=== PATIENT | male | born 1945 | race American Indian/Alaskan Native ===

== ENCOUNTER 2018-01-03 13:37 | Day surgery (SDC) | payer MEDICARE ==
[2017-12-19 16:05] VITALS: BMI 30.8
[2018-01-03 14:37] LABS: BASO # 0.09 K/mm3 (0.0-2.0); BASO % 1.1 % (0.0-3.0); EOS # 0.6 (0.0-0.7); EOS % 6.9 % (1.5-5.0); GRAN # 4.41 (1.4-6.5); GRAN % 53.4 % (50.0-68.0); HEMOGLOBIN 9.4 g/dL (14.0-18.0); LYMPH # 2.6 (1.2-3.4); LYMPH % 31.8 % (22.0-35.0); MEAN CELL VOLUME 61.2 fl (80.0-105.0); MEAN CORPUSCULAR HEMOGLOBIN 19.7 pg (25.0-35.0); MEAN CORPUSCULAR HGB CONC 32.2 g/dl (31.0-37.0); MEAN PLATELET VOLUME 9.2 fl (7.0-11.0); MONO # 0.6 (0.1-0.6); MONO % 6.8 % (1.0-6.0); PLATELET COUNT 267 10^3/uL (120.0-450.0); RBC 4.77 10^6/uL (3.5-6.1); RED CELL DISTRIBUTION WIDTH 17.7 % (11.5-14.5); WHITE BLOOD COUNT 8.3 10^3/uL (4.5-11.0)
[2018-01-03 14:43] LABS: INR 1.49; PARTIAL THROMBOPLASTIN TIME 32.6 Seconds (25.1-36.5); PROTHROMBIN TIME 17.1 SECONDS (9.4-12.5)
[2018-01-03 14:48] LABS: BLOOD UREA NITROGEN 12 mg/dL (7-21); CALCIUM 9.8 mg/dL (8.4-10.5); GFR NON-AFRICAN AMERICAN > 60
[2018-01-03] MEDS ORDERED: Midazolam 2 MG/2 ML VIAL ONE (15:48)
[2018-01-03 15:58] LABS: ANISOCYTOSIS 1+; HYPOCHROMIA 1+; POIKILOCYTOSIS 1+
[2018-01-03 15:59] LABS: LARGE PLATELETS PRESENT; MICROCYTOSIS SLIGHT; OVALOCYTES SLIGHT; SCHISTOCYTES SLIGHT; TARGET CELLS SLIGHT
[2018-01-03 16:01] LABS: ACANTHROCYTES SLIGHT
[2018-01-03] MEDS ORDERED: Lidocaine 1% Inj (20ml) ONE (17:06)
[2018-01-03] MEDS ORDERED: Midazolam 2 MG/2 ML VIAL IVP ONE (17:54)
[2018-01-03] MEDS ORDERED: Oxycodone/Acetaminophen 5/325 mg Tab PO PRN (18:24)
[2018-01-03] MEDS ORDERED: Sodium Chloride 0.45% 1,000 ML IV SCH (18:30)
[2018-01-03] MEDS ORDERED: Oxycodone/Acetaminophen 5/325 mg Tab ONE (19:24)
--- NOTE | 2018-01-03 19:56 | CT ---
PROCEDURE: CT guided right apical lung biopsy. HISTORY: Head and neck carcinoma. Solitary 15 mm right apical nodule. Evaluate for lung carcinoma versus metastatic disease. PHYSICIAN(S): Saad Fisher MD. TECHNIQUE: The relative risks and indications of the procedure were explained to the patient and his son and consent obtained. The patient was placed in a left decubitus position on the CT scanner and preliminary images through the lung apices obtained. Conscious sedation and monitoring were provided throughout the procedure by a nurse. There is a 15 mm nodule at the right apex. A right posterior approach was selected and the area prepped and draped in the usual sterile fashion. 1% Xylocaine was used to anesthetize the skin and soft tissues. A 19 gauge guiding needle was advanced into the 15 mm nodule at the right lung apex. Its position was confirmed with CT. Using coaxial technique, multiple core biopsies were obtained. The postprocedure images show no evidence of pneumothorax or significant hemorrhage.. IMPRESSION: 1. CT-guided right apical lung biopsy as described above.
[2018-01-04 04:05] VITALS: O2SAT 95
--- NOTE | 2018-01-04 09:34 | RAD ---
Date of service: 01/03/2018 HISTORY: rt apical lung bx COMPARISON: No prior. FINDINGS: LUNGS: There is no evidence of post biopsy pneumothorax PLEURA: No significant pleural effusion identified, no pneumothorax apparent. CARDIOVASCULAR: Aortic calcification Moderate cardiomegaly no pulmonary vascular congestion. OSSEOUS STRUCTURES: No significant abnormalities. VISUALIZED UPPER ABDOMEN: Normal. OTHER FINDINGS: None. IMPRESSION: There is no evidence of post biopsy pneumothorax
[2018-01-04 14:07] VITALS: BP 135/74; PULSE 84; RESP 18; TEMP 97.3
== END 2018-01-04 14:49 | disposition home or self-care (01) ==
LOC: SDS 13:37 → 3RSO 20:26 → SDS 01-04 14:49
PROVIDERS: ATTEND Radiology Vascular & Interventional Radiology
DX: C34.91 Malignant neoplasm of unspecified part of right bronchus or lung (principal)
CPT/HCPCS: 32405; 36415; 71045; 77012; 80048; 85025; 85610; 85730; 88305; J2250; J2405; J3010; J7030 ×2

== ENCOUNTER 2018-02-09 10:30 | Inpatient (IN) | payer MEDICARE, OTHER ==
--- NOTE | 2018-02-09 11:09 | ED PDOC ---
Arrival/HPI - General Chief Complaint: Abnormal Skin Integrity Time Seen by Provider: 02/09/18 10:42 Historian: Patient - History of Present Illness Narrative History of Present Illness (Text): 02/09/18 11:09 72yr old male presents today sent in by dr. Grijalva for a large mass to right side of neck that has been increasing over the past 2-3 days. pt states he has a hx of lipoma but over the past 2 days. pt denies fever/chills. no headaches, no dizziness or weakness. no vomiting/diarrhea. pt states area has become large and tender and hard. no medications have been taken for pain. no trismus. no difficulty breathing or swallowing. no other complaints. Past Medical History - Provider Review Nursing Documentation Reviewed: Yes - Travel History Have you recently traveled outside [place] w/in the past 3 mons?: No - Infectious Disease Hx of Infectious Diseases: None - Cardiac Hx Cardiac Arrhythmia: Yes Hx Congestive Heart Failure: Yes Hx Peripheral Edema: Yes Other/Comment: defib - Pulmonary Hx Respiratory Disorders: No - Neurological Hx Paralysis: No - HEENT Hx HEENT Disorder: Yes Hx Cataracts: Yes - Renal Hx Renal Disorder: Yes - Endocrine/Metabolic Hx Endocrine Disorders: Yes Hx Diabetes Mellitus Type 2: Yes - Hematological/Oncological Hx Blood Transfusions: No Hx Blood Transfusion Reaction: No Hx Cancer: Yes Other/Comment: on radiation therapy - Integumentary Hx Dermatological Disorder: No - Musculoskeletal/Rheumatological Hx Musculoskeletal Disorders: Yes - Gastrointestinal Hx Gastrointestinal Disorders: No - Genitourinary/Gynecological Hx Genitourinary Disorders: No - Psychiatric Hx Emotional Abuse: No Hx Physical Abuse: No Hx Substance Use: No - Surgical History Hx Cataract Extraction: Yes - Anesthesia Hx Anesthesia Reactions: No Hx Malignant Hyperthermia: No - Suicidal Assessment Feels Threatened In Home Enviroment: No Family/Social History - Physician Review Nursing Documentation Reviewed: Yes Family/Social History: Unknown Family HX Smoking Status: Former Smoker Hx Alcohol Use: No Hx Substance Use: No Allergies/Home Meds Allergies/Adverse Reactions: Allergies No Known Allergies Allergy (Verified 12/19/17 16:05) Home Medications: Home Meds Medication Instructions Recorded Confirmed Insulin Detemir [Levemir] 20 unit SC QAM 10/21/17 02/09/18 Tamsulosin HCl [Flomax] 0.4 mg PO DAILY 10/21/17 02/09/18 amLODIPine [Norvasc] 10 mg PO DAILY 10/21/17 02/09/18 Atorvastatin [Lipitor] 80 mg PO DAILY 12/19/17 02/09/18 Insulin Detemir [Levemir] 15 unit SQ QPM 12/19/17 02/09/18 Metoprolol Tartrate [Lopressor] 25 mg PO BID 12/19/17 02/09/18 Valsartan [Diovan] 80 mg PO DAILY 12/19/17 02/09/18 Warfarin [Coumadin] 5 mg PO DAILY 12/19/17 02/09/18 Ferrous Sulfate [Feosol] 325 mg PO DAILY 01/03/18 02/09/18 Review of Systems - Review of Systems Constitutional: absent: Fatigue, Fevers Respiratory: absent: SOB, Cough Cardiovascular: absent: Chest Pain, Palpitations Gastrointestinal: absent: Abdominal Pain, Nausea, Vomiting Skin: Abscess Neurological: absent: Headache, Dizziness Psychiatric: absent: Anxiety, Depression Physical Exam Vital Signs Reviewed: Yes Vital Signs Temp Pulse Resp BP Pulse Ox 02/09/18 10:31 98 F 109 H 18 117/68 97 Temperature: Afebrile Blood Pressure: Normal Pulse: Tachycardic Respiratory Rate: Normal Appearance: Positive for: Well-Appearing, Non-Toxic, Comfortable Pain Distress: None Mental Status: Positive for: Alert and Oriented X 3 - Systems Exam Head: Present: Tenderness, Swelling, Other (right sided of the neck inferior to the ear lobe there is a large golf ball sized mass with tenderness, erythema, warmth, induration but no fluctuance. ) Mouth: Present: Moist Mucous Membranes, Normal Lips, Normal Tounge. No: Trismus Pharnyx: Present: Normal Respiratory/Chest: Present: Clear to Auscultation Cardiovascular: Present: Tachycardic. No: Murmurs Neurological: Present: GCS=15 Skin: Present: Warm, Dry Psychiatric: Present: Alert, Oriented x 3 Medical Decision Making ED Course and Treatment: 02/09/18 11:15 72yr old male with right sided neck mass cbc: wnl cmp: bun;33/ cr: 1.3 glucose; [address] maxillofacial with IV contrast; FINDINGS: NASOPHARYNX: Unremarkable. SUPRAHYOID NECK: Unremarkable oropharynx, oral cavity, parapharyngeal space and retropharyngeal space. INFRAHYOID NECK: Unremarkable larynx, hypopharynx, and supraglottic space. Vocal cords intact. MASS: There is a large 6.5 cm mass on the left side of the neck. This surrounds and o bliterates the left sternocleidomastoid muscle and left jugular vein. This was previously evaluated with PET-CT and is consistent with the known history of squamous cell head and neck cancer. On the right side there is a 3 x 3.8 cm fluid collection containing pockets of air. Calcifications are also seen within the fluid matrix. The fluid measures 13 Hounsfield units in density. This probably represents an abscess or necrotic lymph node. This was not described on the prior PET-CT. GLANDS: Parotid and submandibular glands unremarkable. Normal size thyroid gland, without nodule. LYMPH NODES: Mild to moderately enlarged cervical lymph nodes are seen on the right and in the supraclavicular area CERVICAL SPINE: No fracture or focal lesion. VASCULAR STRUCTURES: Unremarkable. OTHER FINDINGS: None. IMPRESSION: There is a large 6.5 cm mass on the left side of the neck. This surrounds and obliterates the left sternocleidomastoid muscle and left jugular vein. This was previously evaluated with PET-CT and is consistent with the known history of squamous cell head and neck cancer. On the right side there is a 3 x 3.8 cm fluid collection containing pockets of air. Calcifications are also seen within the fluid matrix. The fluid measures 13 Hounsfield units in density. This probably represents an abscess or necrotic lymph node. This was not described on the prior PET-CT. 02/09/18 13:[address] torrez, accepts observational status admission to med/surg with surgical consult. pt started on vancomycin and zosyn. impression: neck pain, abscess admit med/surg observational status. 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 02/09/18 15:04 - RAD Interpretation Radiology Orders: 02/09/18 10:54 MAXILLOFACIAL W/CONTRAST [CT] Stat - Medication Orders Current Medication Orders: Discontinued Medications Acetaminophen (Tylenol 325mg Tab) 650 mg PO STAT STA Stop: 02/09/18 10:56 Disposition/Present on Arrival - Present on Arrival Any Indicators Present on Arrival: No History of DVT/PE: No History of Uncontrolled Diabetes: No Urinary Catheter: No History of Decub. Ulcer: No History Surgical Site Infection Following: None - Disposition Have Diagnosis and Disposition been Completed?: Yes Diagnosis: Neck mass, Abscess Disposition: HOSPITALIZED Disposition Time: 13:40 Patient Plan: Observation Patient Problems: Current Active Problems Problem Status Onset Abscess Acute Neck mass Acute Condition: FAIR
[2018-02-09 11:57] LABS: BASO # 0.04 K/mm3 (0.0-2.0); BASO % 0.4 % (0.0-3.0); EOS # 0.5 (0.0-0.7); EOS % 4.5 % (1.5-5.0); GRAN # 8.04 (1.4-6.5); GRAN % 77.3 % (50.0-68.0); LYMPH # 1.2 (1.2-3.4); LYMPH % 11.5 % (22.0-35.0); MEAN CELL VOLUME 61.4 fl (80.0-105.0); MEAN CORPUSCULAR HEMOGLOBIN 19.4 pg (25.0-35.0); MEAN CORPUSCULAR HGB CONC 31.5 g/dl (31.0-37.0); MONO # 0.7 (0.1-0.6); MONO % 6.3 % (1.0-6.0); PLATELET COUNT 217 10^3/uL (120.0-450.0); RBC 5.16 10^6/uL (3.5-6.1); RED CELL DISTRIBUTION WIDTH 19.6 % (11.5-14.5); WHITE BLOOD COUNT 10.4 10^3/uL (4.5-11.0)
[2018-02-09 12:02] LABS: INR 1.26; PARTIAL THROMBOPLASTIN TIME 28.1 Seconds (25.1-36.5); PROTHROMBIN TIME 14.6 SECONDS (9.4-12.5)
[2018-02-09 12:28] LABS: ALB/GLOB RATIO 0.9 (1.1-1.8); ALBUMIN 3.8 g/dL (3.0-4.8); ALT/SGPT 21 U/L (7-56); AST/SGOT 19 U/L (17-59); BLOOD UREA NITROGEN 33 mg/dL (7-21); CALCIUM 8.8 mg/dL (8.4-10.5); GFR NON-AFRICAN AMERICAN 54
[2018-02-09] MEDS ORDERED: Iohexol 350 MG/100 ML VIAL ONE (12:35)
[2018-02-09 13:03] VITALS: BMI 25.2
--- NOTE | 2018-02-09 13:46 | CT ---
Date of service: 02/09/2018 PROCEDURE: CT NECK WITH CONTRAST HISTORY: right sided mass just adjacent to ear COMPARISON: PET-CT 11/30/2017 TECHNIQUE: CT of the neck with intravenous contrast. Coronal and sagittal reformats generated. Intravenous contrast dose: 100 cc of Omni 350 Radiation dose: Total exam DLP = 927.86 mGy-cm. This CT exam was performed using one or more of the following dose reduction techniques: Automated exposure control, adjustment of the mA and/or kV according to patient size, and/or use of iterative reconstruction technique. FINDINGS: NASOPHARYNX: Unremarkable. SUPRAHYOID NECK: Unremarkable oropharynx, oral cavity, parapharyngeal space and retropharyngeal space. INFRAHYOID NECK: Unremarkable larynx, hypopharynx, and supraglottic space. Vocal cords intact. MASS: There is a large 6.5 cm mass on the left side of the neck. This surrounds and obliterates the left sternocleidomastoid muscle and left jugular vein. This was previously evaluated with PET-CT and is consistent with the known history of squamous cell head and neck cancer. On the right side there is a 3 x 3.8 cm fluid collection containing pockets of air. Calcifications are also seen within the fluid matrix. The fluid measures 13 Hounsfield units in density. This probably represents an abscess or necrotic lymph node. This was not described on the prior PET-CT. GLANDS: Parotid and submandibular glands unremarkable. Normal size thyroid gland, without nodule. LYMPH NODES: Mild to moderately enlarged cervical lymph nodes are seen on the right and in the supraclavicular area CERVICAL SPINE: No fracture or focal lesion. VASCULAR STRUCTURES: Unremarkable. OTHER FINDINGS: None. IMPRESSION: There is a large 6.5 cm mass on the left side of the neck. This surrounds and obliterates the left sternocleidomastoid muscle and left jugular vein. This was previously evaluated with PET-CT and is consistent with the known history of squamous cell head and neck cancer. On the right side there is a 3 x 3.8 cm fluid collection containing pockets of air. Calcifications are also seen within the fluid matrix. The fluid measures 13 Hounsfield units in density. This probably represents an abscess or necrotic lymph node. This was not described on the prior PET-CT.
[2018-02-09] MEDS ORDERED: Vancomycin 1gm in NS 250ml 1 GM/250 ML BAG IVPB STA (13:47)
[2018-02-09] MEDS ORDERED: Piperacillin/Tazobact 3.375 gm 100 ML IVPB STA (13:47)
--- NOTE | 2018-02-09 14:49 | CP.PCM.HP ---
<Abraham Urrutia - Last Filed: 02/09/18 15:24> History of Present Illness - History of Present Illness History of Present Illness: Abraham Urrutia PGY1, History and Physical for Dr Deanne Villarreal Pt is a 72yo male with a PMH of CHF atrial fibrillation, diabetes type II, HTN, left neck mass Squamous cell carcinoma, non small cell lung cancer of the lung who presents to the ED after being refereed by his radiation oncologist, Dr Grijalva for a rapidly enlarging mass on the right side of his cheek below his ear lobe. Pt states that he has had a bump in this location for "years". Pt was told at one time that this is "some type of gland". Pt denies drainage from the lump. Pt states he has a cancerous mass on the left side of his cheek for which he is receiving treatment for from Dr Grijalva and Dr Lucio. Pt has been receiving daily radiation treatments. Pt also states he has been having trouble swallowing. Pt denies trouble breathing, fevers, chills, chest pain, SOB, or abdominal pain. A 12 point ROS was obtained and added to the HPI where appropriate. Past Medical History: CHF atrial fibrillation, diabetes type II, HTN, left neck mass Squamous cell carcinoma, non small cell lung cancer of the lung Past Surgical History: I+D of left groin abscess, biopsy of mass on left side of neck/face Family History: mother asthma, father "heart attack Social History: Tobacco 10 pack years history, denies alcohol, denies drugs Allergies: denies Home Meds: lasix, lopressor, valsartan, coumadin, amlodipine, lipitor, flomax, lispro, levemir Present on Admission - Present on Admission Any Indicators Present on Admission: No Review of Systems - Review of Systems Review of Systems: a 12 point ROS was obtained and added to the HPI where appropriate Past Patient History - Infectious Disease Hx of Infectious Diseases: None - Past Medical History & Family History Past Medical History?: Yes - Past Social History Smoking Status: Former Smoker - CARDIAC Hx Cardia Arrhythmia: Yes Hx Congestive Heart Failure: Yes Hx Peripheral Edema: Yes Other/Comment: defib - PULMONARY Hx Respiratory Disorders: No - NEUROLOGICAL Hx Paralysis: No - HEENT Hx HEENT Problems: Yes Hx Cataracts: Yes - RENAL Hx Chronic Kidney Disease: Yes - ENDOCRINE/METABOLIC Hx Endocrine Disorders: Yes Hx Diabetes Mellitus Type 2: Yes - HEMATOLOGICAL/ONCOLOGICAL Hx Blood Transfusions: No Hx Blood Transfusion Reaction: No Hx Cancer: Yes Other/Comment: on radiation therapy - INTEGUMENTARY Hx Dermatological Problems: No - MUSCULOSKELETAL/RHEUMATOLOGICAL Hx Musculoskeletal Disorders: Yes - GASTROINTESTINAL Hx Gastrointestinal Disorders: No - GENITOURINARY/GYNECOLOGICAL Hx Genitourinary Disorders: No - PSYCHIATRIC Hx Emotional Abuse: No Hx Physical Abuse: No Hx Substance Use: No - SURGICAL HISTORY Hx Cataract Extraction: Yes - ANESTHESIA Hx Anesthesia Reactions: No Hx Malignant Hyperthermia: No Meds Allergies/Adverse Reactions: Allergies Allergy/AdvReac Type Severity Reaction Status Date / Time No Known Allergies Allergy Verified 12/19/17 16:05 Physical Exam - Head Exam Additional comments: pt has a mass on the left and right side of his face/neck - Eye Exam Eye Exam: EOMI - ENT Exam ENT Exam: Mucous Membranes Moist - Respiratory Exam Respiratory Exam: Clear to Auscultation Bilateral. absent: Accessory Muscle Use, Respiratory Distress - Cardiovascular Exam Cardiovascular Exam: +S1, +S2. absent: Diastolic murmur, Systolic Murmur - GI/Abdominal Exam GI & Abdominal Exam: Normal Bowel Sounds, Soft. absent: Tenderness - Extremities Exam Extremities exam: Positive for: full ROM, normal inspection. Negative for: calf tenderness, pedal edema - Neurological Exam Neurological exam: Alert, Oriented x3 - Psychiatric Exam Psychiatric exam: Normal Affect, Normal Mood - Skin Skin Exam: Dry, Intact, Warm Results - Vital Signs Recent Vital Signs: Last Vital Signs Temp 98 F 02/09/18 10:31 Pulse 109 H 02/09/18 10:31 Resp 18 02/09/18 10:31 BP 117/68 02/09/18 10:31 Pulse Ox 97 02/09/18 10:31 - Labs Result Diagrams: 02/09/18 11:35 02/09/18 11:35 Labs: Laboratory Results - last 24 hr 02/09/18 02/09/18 02/09/18 11:35 11:35 11:35 WBC 10.4 D RBC 5.16 Hgb 10.0 L Hct 31.7 L MCV 61.4 L MCH 19.4 L MCHC 31.5 RDW 19.6 H Plt Count 217 Gran % 77.3 H Lymph % (Auto) 11.5 L [place] % (Auto) 6.3 H Eos % (Auto) 4.5 Baso % (Auto) 0.4 Gran # 8.04 H Lymph # (Auto) 1.2 [place] # (Auto) 0.7 H Eos # (Auto) 0.5 Baso # (Auto) 0.04 PT 14.6 H INR 1.26 APTT 28.1 Sodium 138 Potassium 3.9 Chloride 95 L Carbon Dioxide 33 Anion Gap 14 BUN 33 H Creatinine 1.3 Est GFR ( Amer) > 60 Est GFR (Non-Af Amer) 54 Random Glucose 265 H Calcium 8.8 Total Bilirubin 1.1 AST 19 ALT 21 Alkaline Phosphatase 131 H Total Protein 8.2 Albumin 3.8 Globulin 4.4 Albumin/Globulin Ratio 0.9 L Assessment & Plan - Assessment and Plan (Free Text) Assessment: Pt is a 72yo male with a PMH of CHF atrial fibrillation, diabetes type II, HTN, left neck mass Squamous cell carcinoma, non small cell lung cancer of the lung who presents to the ED after being refereed by his radiation oncologist, Dr Grijalva for a rapidly enlarging mass on the right side of his cheek below his ear lobe. Plan: Abscess vs Necrotic Lymph node, Right side of head/neck - hx of left neck mass Squamous cell carcinoma - Swallow eval - Surgery consult - Radiation onc, Dr Grijlava - Heme/ onc Dr Lucio - ID non small cell lung cancer of the lung - continue to follow with Dr Valentine Shin, continue current chemotherapy and radiation CHF - lasix - lopressor - valsartan Atrial Fibrillation - coumadin Diabetes type II - levemir - lispro HTN - amlodipine 10 HLD - lipitor BPH - flomax Ppx - heparin Pt seen, examined, assessment and plan discussed with Dr Deanne Urrutia PGY1, Internal Medicine Resident - Date & Time Date: 02/09/18 Time: 15:06 <Deanne Villarreal R - Last Filed: 02/12/18 15:02> Results - Vital Signs Recent Vital Signs: Last Vital Signs Temp 97.9 F 02/12/18 06:00 Pulse 95 H 02/12/18 13:24 Resp 20 02/12/18 06:00 BP 125/75 02/12/18 13:24 Pulse Ox 97 02/12/18 06:00 - Labs Result Diagrams: 02/12/18 05:30 02/12/18 05:30 Labs: Laboratory Results - last 24 hr 02/10/18 02/11/18 02/11/18 05:44 06:00 16:20 WBC RBC Hgb Hct MCV MCH MCHC RDW Plt Count Gran % Lymph % (Auto) [place] % (Auto) Eos % (Auto) Baso % (Auto) Gran # Lymph # (Auto) [place] # (Auto) Eos # (Auto) Baso # (Auto) PT INR Sodium Potassium Chloride Carbon Dioxide Anion Gap BUN Creatinine Est GFR ( Amer) Est GFR (Non-Af Amer) POC Glucose (mg/dL) 169 H Random Glucose Hemoglobin A1c 8.3 H Calcium Total Bilirubin AST ALT Alkaline Phosphatase Total Protein Albumin Globulin Albumin/Globulin Ratio HIV 1&2 Ag/Ab, 4th Gen Nonreactive 02/11/18 02/12/18 02/12/18 21:16 05:30 05:30 WBC 4.9 D RBC 4.49 Hgb 8.5 L Hct 27.3 L MCV 60.8 L MCH 18.9 L MCHC 31.1 RDW 19.7 H Plt Count 207 Gran % 56.0 Lymph % (Auto) 20.9 L [place] % (Auto) 12.6 H Eos % (Auto) 8.9 H Baso % (Auto) 1.6 Gran # 2.76 Lymph # (Auto) 1.0 L [place] # (Auto) 0.6 Eos # (Auto) 0.4 Baso # (Auto) 0.08 PT INR Sodium 139 Potassium 3.9 Chloride 98 Carbon Dioxide 32 Anion Gap 12 BUN 28 H Creatinine 1.4 Est GFR ( Amer) > 60 Est GFR (Non-Af Amer) 50 POC Glucose (mg/dL) 174 H Random Glucose 77 Hemoglobin A1c Calcium 8.4 Total Bilirubin 0.9 AST 31 ALT 23 Alkaline Phosphatase 114 Total Protein 7.4 Albumin 3.4 Globulin 4.0 Albumin/Globulin Ratio 0.9 L HIV 1&2 Ag/Ab, 4th Gen 02/12/18 02/12/18 02/12/18 05:30 07:33 08:56 WBC RBC Hgb Hct MCV MCH MCHC RDW Plt Count Gran % Lymph % (Auto) [place] % (Auto) Eos % (Auto) Baso % (Auto) Gran # Lymph # (Auto) [place] # (Auto) Eos # (Auto) Baso # (Auto) PT 14.3 H INR 1.24 Sodium Potassium Chloride Carbon Dioxide Anion Gap BUN Creatinine Est GFR ( Amer) Est GFR (Non-Af Amer) POC Glucose (mg/dL) 65 85 Random Glucose Hemoglobin A1c Calcium Total Bilirubin AST ALT Alkaline Phosphatase Total Protein Albumin Globulin Albumin/Globulin Ratio HIV 1&2 Ag/Ab, 4th Gen 02/12/18 11:32 WBC RBC Hgb Hct MCV MCH MCHC RDW Plt Count Gran % Lymph % (Auto) [place] % (Auto) Eos % (Auto) Baso % (Auto) Gran # Lymph # (Auto) [place] # (Auto) Eos # (Auto) Baso # (Auto) PT INR Sodium Potassium Chloride Carbon Dioxide Anion Gap BUN Creatinine Est GFR ( Amer) Est GFR (Non-Af Amer) POC Glucose (mg/dL) 127 H Random Glucose Hemoglobin A1c Calcium Total Bilirubin AST ALT Alkaline Phosphatase Total Protein Albumin Globulin Albumin/Globulin Ratio HIV 1&2 Ag/Ab, 4th Gen Attending/Attestation - Attestation I have personally seen and examined this patient.: Yes I have fully participated in the care of the patient.: Yes I have reviewed all pertinent clinical information: Yes Notes (Text): Patient seen and examined by me with resident at 2 PM on 02/09/18. Case including HPI, physical exam, and assessment and plan discussed with resident. Agree with above with following additions/corrections. 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 Patient states he had a bump there for years. He noticed over the past 2 days, the bump became swollen, red, and painful. Patient states he tried hot water, salt, and alcohol for the swelli ng but did not work. Patient states he went for his radiation treatment today and his radiation oncologist sent him to the emergency room for further work up and treatment of the bump. Patient states he did not notice any drainage from the area and he did not try anything for the pain. Patient denies any associated fevers or chills at home. Patient states that he also has a little bit of difficulty swallowing secondary to the head and neck cancer. He states that he was told he might need a PEG tube but he refuses and states hes able to eat. Patient denies any nausea, vomiting, or abdominal pain. No headaches or dizziness. No chest pain or shortness of breath. No dysuria. No diarrhea or co nstipation. Allergies: NKDA Family history: mother and had history of asthma, father of heart disease 12 point review of systems reviewed by me. See above HPI, all other systems negative. Physical exam: General: Awake and alert lying in bed in no acute distress HEENT: Normocephalic, atraumatic. Extraocular muscles intact, pupils equal and reactive, no scleral icterus. Oropharynx is pink and moist. No pharyngeal erythema or exudate appreciated. Large mass left neck. Positive swollen mass walnut sized below/behind right ear, erythematous and tender to touch. Hearing grossly decreased. Ears and nose externally unremarkable. Cardiovascular: Irregularly irregular rhythm. No murmurs, rubs, or gallops appreciated Pulmonary: Normal respiratory effort. No rhonchi, rales, or wheezing appreciated Gastrointestinal: Soft. Nondistended. Nontender. Positive bowel sounds all 4 quadrants. No guarding. Musculoskeletal: Moves all extremities. No calf tenderness. No edema appre ciated. No CVA tenderness. Central nervous system: AAOx 3, CN 2-12 grossly intact Dermatologic: Skin warm and dry. 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 1. Abscess vs necrotic lymph node. Maxillofacial CT per radiologist showed large 6.5cm mass on left side of neck, this surrounds and obliterates the left sternocleidomastoid muscle and left jugular vein, consistent with known history of squamous cell head and neck cancer; on right side, there is a 3 x 3.8 cm fluid collection containing pockets of air, calcifications are seen within the fluid matrix, fluid measures 13 [place] units, probably represents an abscess or necrotic lymph node. Surgery consulted, follow up recommendations. ID consulted, follow up recommendations. Patient afebrile. No leukocytosis. 2. Dysphagia. Per patient, he is still able to eat. Will get speech and swallow evaluation. 3. NORRIS. Patient on Lasix at home. May be secondary to dehydration. Lasix held, patient placed on low dose IV fluids. Follow up repeat labs in AM. 4. Atrial fibrillation. INR subtherapeutic. Coumadin held for now secondary to possible procedure. Continue home metoprolol. 5. Chronic systolic CHF. Compensated. Home Lasix held for now secondary to NORRIS and dehydration. Continue home metoprolol. Patient on valsartan at home, changed to cozaar here. 6. DM2. Placed on insulin sliding scale. Monitor accuchecks. 7. Essential hypertension. Continue home metoprolol and Norvasc. Patient on valsartan at home, changed to cozaar here. 8. Hyperlipidemia. Continue home Lipitor 9. BPH. Continue home Flomax 10. Anemia. Chronic. On feosol at home. 11. Head and neck cancer/nonsmall cell lung cancer. Hem/onc consulted, follow up recommendations. Patient on Cisplatin and radiation. 12. DVT prophylaxis. Coumadin held for now for possible surgical procedure. 13. Patient is a full code Case was discussed in detail with the patient and hem/onc Dr. Ricardo Lucio regarding current diagnosis and treatment plan.
[2018-02-09] MEDS: Sodium Chloride 0.9% 500 ML IV SCH (14:58)
[2018-02-09] MEDS ORDERED: Dextrose 50% SYRINGE Inj (50 ml) IV PRN (15:09)
--- NOTE | 2018-02-09 15:55 | CP.PCM.CON ---
History of Present Illness - History of Present Illness History of Present Illness: PGY-1 Catalina Romero D.O. Surgery consult note for Dr. Delcid: Patient is a 72 yo AA male with a history of L-sided neck squamous cell carcinoma, CHF, Afib, IA, HTN, and T2DM who presented to the ED today with a R- sided facial mass. Patient states that he has had a small mass by his R jaw for years. 3 days ago, the mass started to swell and increased significantly in size. He also says it is sore. He has been washing with hot salt water, which provides some relief. He has been receiving radiation for his L-sided neck CA for the past 4 weeks. Patient complained of the R-sided mass at his radiation session today, and they suggested he come to the ED. Patient denies any trouble swallowing, talking, or breathing. He denies sore throat, fevers, or chills. He has not noticed any discharge or bleeding from the mass. Of note, patient had a lung biopsy in 12/25 that revealed invasive adenocarcinoma of the lung. PMH: L-sided neck squamous cell carcinoma (week 4 of 7 of radiation), adenocarcinoma of the lung, CHF, Afib, T2DM, HTN, IA PSH: Defibrillator (5 yrs ago), ?thigh abscess (4-5 yrs ago), ?b/l armpit gland removal, CT-guided lung Bx Meds: Warfarin 5mg, Metoprolol 25mg, Lasix 40mg, Norvasc 10mg, Valsartan 80mg, Flomax 0.4mg, Lipitor 80mg, Ferrous sulfate 325mg, Tylenol PRN, Levemir 15u AM, 20u HS All: NKA FH: Father- [place] x2 Mother- asthma Brother- unknown cancer, has feeding tube SH: Lives with girlfriend Former smoker- 1/2 ppd x 7 yrs, quit 4 yrs ago Denies alcohol or illicit drug use Review of Systems - Constitutional Constitutional: absent: Chills, Fever, Headache - EENT Eyes: absent: Change in Vision Ears: absent: Decreased Hearing Nose/Mouth/Throat: Facial Pain, Neck Pain, Neck Mass. absent: Nasal Congestion, Sinus Pain, Sinus Pressure, Dental Pain, Hoarsness, Mouth Lesions, Mouth Pain, Sore Throat - Cardiovascular Cardiovascular: absent: Chest Pain, Diaphoresis, Dyspnea, Palpitations - Respiratory Respiratory: absent: Cough, Dyspnea - Gastrointestinal Gastrointestinal: absent: Abdominal Pain, Constipation, Diarrhea, Nausea, Vomiting - Genitourinary Genitourinary: absent: Dysuria, Hematuria - Musculoskeletal Musculoskeletal: absent: Muscle Weakness, Numbness, Tingling - Integumentary Integumentary: As Per HPI. absent: Lesions - Neurological Neurological: absent: Headaches, Syncope, Weakness Past Patient History - Infectious Disease Hx of Infectious Diseases: None - Past Medical History & Family History Past Medical History?: Yes Pertinent Family History: Father- [place] x2 Mother- asthma Brother- unknown cancer, has feeding tube - Past Social History Smoking Status: Former Smoker Chewing Tobacco Use: No Cigar Use: No Alcohol: None Drugs: Denies Home Situation {Lives}: Roommate (girlfriend) - CARDIAC Hx Cardia Arrhythmia: Yes Hx Congestive Heart Failure: Yes Hx Peripheral Edema: Yes Other/Comment: defib - PULMONARY Hx Respiratory Disorders: No - NEUROLOGICAL Hx Paralysis: No - HEENT Hx HEENT Problems: Yes Hx Cataracts: Yes - RENAL Hx Chronic Kidney Disease: Yes - ENDOCRINE/METABOLIC Hx Endocrine Disorders: Yes Hx Diabetes Mellitus Type 2: Yes - HEMATOLOGICAL/ONCOLOGICAL Hx Blood Transfusions: No Hx Blood Transfusion Reaction: No Hx Cancer: Yes Other/Comment: on radiation therapy - INTEGUMENTARY Hx Dermatological Problems: No - MUSCULOSKELETAL/RHEUMATOLOGICAL Hx Musculoskeletal Disorders: Yes - GASTROINTESTINAL Hx Gastrointestinal Disorders: No - GENITOURINARY/GYNECOLOGICAL Hx Genitourinary Disorders: No - PSYCHIATRIC Hx Emotional Abuse: No Hx Physical Abuse: No Hx Substance Use: No - SURGICAL HISTORY Hx Cataract Extraction: Yes - ANESTHESIA Hx Anesthesia Reactions: No Hx Malignant Hyperthermia: No Meds Allergies/Adverse Reactions: Allergies Allergy/AdvReac Type Severity Reaction Status Date / Time No Known Allergies Allergy Verified 12/19/17 16:05 - Medications Medications: Current Medications Amlodipine Besylate (Norvasc) 10 mg PO DAILY [facility] Atorvastatin Calcium (Lipitor) 80 mg PO HS [facility] Dextrose (Dextrose 50% Inj) 0 ml IV STAT PRN; Protocol PRN Reason: Hypoglycemia Protocol Furosemide (Lasix) 40 mg PO DAILY [facility] Sodium Chloride (Sodium Chloride 0.9%) 500 mls @ 60 mls/hr IV .Q8H20M [facility] Last Admin: 02/09/18 14:58 Dose: 60 mls/hr Dextrose (Dextrose 5% In Water 1000 Ml) 1,000 mls @ 0 mls/hr IV .Q0M PRN; Prot ocol PRN Reason: Hypoglycemia Protocol Insulin Detemir (Levemir) 10 unit SC BRKDIN [facility] Insulin Human Lispro (Humalog Med) 0 units SC ACHS DAVID; Protocol Losartan Potassium (Cozaar) 50 mg PO DAILY [facility] Metoprolol Tartrate (Lopressor) 50 mg PO DAILY [facility] Tamsulosin HCl (Flomax) 0.4 mg PO DAILY [facility] Physical Exam - Head Exam Additional comments: 4x4cm raised mass anterior and inferior to ear, tender to palpation - Eye Exam Eye Exam: EOMI, Normal appearance - ENT Exam ENT Exam: Mucous Membranes Moist - Neck Exam Additional comments: large L-sided neck mass, nontender, known site of CA currently undergoing radiation - Respiratory Exam Respiratory Exam: NORMAL BREATHING PATTERN. absent: Accessory Muscle Use, Respiratory Distress - Cardiovascular Exam Cardiovascular Exam: REGULAR RHYTHM - GI/Abdominal Exam GI & Abdominal Exam: Soft. absent: Distended, Tenderness - Extremities Exam Extremities exam: Positive for: normal inspection. Negative for: pedal edema - Neurological Exam Neurological exam: Alert, CN II-XII Intact, Oriented x3 - Psychiatric Exam Psychiatric exam: Normal Affect, Normal Mood - Skin Skin Exam: Dry, Normal Color, Warm Results - Vital Signs Recent Vital Signs: Last Vital Signs Temp 99.1 F 02/09/18 15:13 Pulse 99 H 02/09/18 15:10 Resp 18 02/09/18 15:10 BP 119/75 02/09/18 15:10 Pulse Ox 97 02/09/18 15:10 - Labs Result Diagrams: 02/09/18 11:35 02/09/18 11:35 Labs: Laboratory Results - last 24 hr 02/09/18 02/09/18 02/09/18 11:35 11:35 11:35 WBC 10.4 D RBC 5.16 Hgb 10.0 L Hct 31.7 L MCV 61.4 L MCH 19.4 L MCHC 31.5 RDW 19.6 H Plt Count 217 Gran % 77.3 H Lymph % (Auto) 11.5 L [place] % (Auto) 6.3 H Eos % (Auto) 4.5 Baso % (Auto) 0.4 Gran # 8.04 H Lymph # (Auto) 1.2 [place] # (Auto) 0.7 H Eos # (Auto) 0.5 Baso # (Auto) 0.04 PT 14.6 H INR 1.26 APTT 28.1 Sodium 138 Potassium 3.9 Chloride 95 L Carbon Dioxide 33 Anion Gap 14 BUN 33 H Creatinine 1.3 Est GFR ( Amer) > 60 Est GFR (Non-Af Amer) 54 Random Glucose 265 H Calcium 8.8 Total Bilirubin 1.1 AST 19 ALT 21 Alkaline Phosphatase 131 H Total Protein 8.2 Albumin 3.8 Globulin 4.4 Albumin/Globulin Ratio 0.9 L Assessment & Plan - Assessment and Plan (Free Text) Assessment: 72M with R-sided facial mass, likely infected lymph node Plan: - Maxillofacial CT: 3 x 3.8 cm fluid collection containing pockets of air and calcifications consistent with abscess or necrotic LN - Aspirate mass - f/u cytology - Analgesics PRN - Recommend ENT consult (patient has seen Dr. Malin previously) Further recs as per attending, Dr. Delcid.
[2018-02-09] MEDS ORDERED: Lidocaine 2% PF (10 ml) Amp INJ ONE (16:13)
[2018-02-09] MEDS ORDERED: Morphine 2 mg/ml ISec IVP STA (16:56)
[2018-02-09] MEDS: Insulin Lispro (humaLOG) MEDIUM Coverage SC SCH ×2 (17:52→21:57)
--- NOTE | 2018-02-09 17:56 | PCM.PROC ---
- Incision & Drainage Of Abscess Anesthesia: Lidocaine 1% Used During Procedure: Continuous Pulse Oximetry Prep Used: Betadine Procedure: Incised W/Scalpel Blade#:, Drained Pus, Irrigated Cavity W/Saline, Probed To Break Up Loculations, Packed W/Gauze, Cultures Obtained And Sent To Lab
[2018-02-09] MEDS ORDERED: Insulin Detemir 100 units/ml Vial (Levemir) SC SCH (18:00)
[2018-02-09] MEDS: Insulin Detemir 100 units/ml Vial (Levemir) SC SCH (18:40)
--- NOTE | 2018-02-09 21:26 | CP.PCM.CON ---
History of Present Illness - History of Present Illness History of Present Illness: 72 year old male with a history of locally advance head and neck cancer on definitive chemoradiation, localized NSCLC recently diagnosed and not currently on therapy, admitted with right neck swelling. The patient is s/p I+D of infect ed sebaceous cyst. He denies fevers and chills. Past medical history: Locally advanced head and neck cancer Past surgical history: I+D Family history: Denies hematologic and oncologic problems Social history: Former tobacco abuse Allergies: NKA Review of systems: All remaining review of systems including HEENT, cardiovascular, respiratory, gastrointestinal, genitourinary, musculoskeletal, dermatologic, neurologic, and psychiatric are negative unless mentioned in the HPI. Past Patient History - Infectious Disease Hx of Infectious Diseases: None - Past Medical History & Family History Past Medical History?: Yes - Past Social History Smoking Status: Former Smoker Chewing Tobacco Use: No Cigar Use: No Alcohol: None Drugs: Denies Home Situation {Lives}: Roommate (girlfriend) - CARDIAC Hx Cardia Arrhythmia: Yes Hx Congestive Heart Failure: Yes Hx Peripheral Edema: Yes Other/Comment: defib - PULMONARY Hx Respiratory Disorders: No - NEUROLOGICAL Hx Paralysis: No - HEENT Hx HEENT Problems: Yes Hx Cataracts: Yes - RENAL Hx Chronic Kidney Disease: Yes - ENDOCRINE/METABOLIC Hx Endocrine Disorders: Yes Hx Diabetes Mellitus Type 2: Yes - HEMATOLOGICAL/ONCOLOGICAL Hx Blood Transfusions: No Hx Blood Transfusion Reaction: No Hx Cancer: Yes Other/Comment: on radiation therapy - INTEGUMENTARY Hx Dermatological Problems: No - MUSCULOSKELETAL/RHEUMATOLOGICAL Hx Musculoskeletal Disorders: Yes - GASTROINTESTINAL Hx Gastrointestinal Disorders: No - GENITOURINARY/GYNECOLOGICAL Hx Genitourinary Disorders: No - PSYCHIATRIC Hx Emotional Abuse: No Hx Physical Abuse: No Hx Substance Use: No - SURGICAL HISTORY Hx Cataract Extraction: Yes - ANESTHESIA Hx Anesthesia Reactions: No Hx Malignant Hyperthermia: No Meds Allergies/Adverse Reactions: Allergies Allergy/AdvReac Type Severity Reaction Status Date / Time No Known Allergies Allergy Verified 12/19/17 16:05 - Medications Medications: Current Medications Amlodipine Besylate (Norvasc) 10 mg PO DAILY [facility] Atorvastatin Calcium (Lipitor) 80 mg PO HS [facility] Last Admin: 02/09/18 21:22 Dose: 80 mg Dextrose (Dextrose 50% Inj) 0 ml IV STAT PRN; Protocol PRN Reason: Hypoglycemia Protocol Furosemide (Lasix) 40 mg PO DAILY [facility] Sodium Chloride (Sodium Chloride 0.9%) 500 mls @ 60 mls/hr IV .Q8H20M [facility] Last Admin: 02/09/18 14:58 Dose: 60 mls/hr Dextrose (Dextrose 5% In Water 1000 Ml) 1,000 mls @ 0 mls/hr IV .Q0M PRN; Protocol PRN Reason: Hypoglycemia Protocol Insulin Detemir (Levemir) 10 unit SC BRKDIN [facility] Last Admin: 02/09/18 18:40 Dose: 10 u Insulin Human Lispro (Humalog Med) 0 units SC ACHS [facility]; Protocol Last Admin: 02/09/18 17:52 Dose: Not Given Losartan Potassium (Cozaar) 50 mg PO DAILY [facility] Metoprolol Tartrate (Lopressor) 50 mg PO DAILY [facility] Tamsulosin HCl (Flomax) 0.4 mg PO DAILY [facility] Physical Exam - Head Exam Head Exam: ATRAUMATIC - Eye Exam Eye Exam: Normal appearance - ENT Exam ENT Exam: Mucous Membranes Dry - Respiratory Exam Respiratory Exam: NORMAL BREATHING PATTERN - Cardiovascular Exam Cardiovascular Exam: +S1, +S2 - GI/Abdominal Exam GI & Abdominal Exam: Normal Bowel Sounds - Extremities Exam Extremities exam: Positive for: normal inspection - Neurological Exam Neurological exam: Oriented x3 - Psychiatric Exam Psychiatric exam: Normal Affect, Normal Mood - Skin Skin Exam: Warm Results - Vital Signs Recent Vital Signs: Last Vital Signs Temp 97.6 F 02/09/18 17:15 Pulse 93 H 02/09/18 17:15 Resp 20 02/09/18 17:15 BP 127/91 H 02/09/18 17:15 Pulse Ox 99 02/09/18 17:15 - Labs Result Diagrams: 02/12/18 05:30 02/12/18 05:30 Labs: Laboratory Results - last 24 hr 02/09/18 02/09/18 02/09/18 11:35 11:35 11:35 WBC 10.4 D RBC 5.16 Hgb 10.0 L Hct 31.7 L MCV 61.4 L MCH 19.4 L MCHC 31.5 RDW 19.6 H Plt Count 217 Gran % 77.3 H Lymph % (Auto) 11.5 L [place] % (Auto) 6.3 H Eos % (Auto) 4.5 Baso % (Auto) 0.4 Gran # 8.04 H Lymph # (Auto) 1.2 [place] # (Auto) 0.7 H Eos # (Auto) 0.5 Baso # (Auto) 0.04 PT 14.6 H INR 1.26 APTT 28.1 Sodium 138 Potassium 3.9 Chloride 95 L Carbon Dioxide 33 Anion Gap 14 BUN 33 H Creatinine 1.3 Est GFR ( Amer) > 60 Est GFR (Non-Af Amer) 54 Random Glucose 265 H Calcium 8.8 Total Bilirubin 1.1 AST 19 ALT 21 Alkaline Phosphatase 131 H Total Protein 8.2 Albumin 3.8 Globulin 4.4 Albumin/Globulin Ratio 0.9 L Assessment & Plan (1) Anemia Assessment and Plan: chemotherapy and radiation chronic disease Status: Acute (2) Head and neck cancer Assessment and Plan: locally advanced on definitive chemoradiation outpatient treatment Status: Acute (3) Non-small cell lung cancer Assessment and Plan: outpatient treatment Thank you for this interesting consult. Status: Acute
[2018-02-09] MEDS: Meropenem IV 1 gm in NS 1 GM/50 ML BAG IVPB SCH (22:48)
[2018-02-09] MEDS ORDERED: Pneumococcal 23-Valent Vaccine IM ONE (22:51)
[2018-02-09] MEDS ORDERED: Influenza Vaccine 60 mcg/0.5 mL SYR (4YR UP) IM ONE (22:51)
[2018-02-10] MEDS: Sodium Chloride 0.9% 500 ML IV SCH (01:18)
[2018-02-10 06:41] LABS: BASO # 0.03 K/mm3 (0.0-2.0); BASO % 0.3 % (0.0-3.0); EOS # 0.5 (0.0-0.7); GRAN % 75.5 % (50.0-68.0); HEMOGLOBIN 8.8 g/dL (14.0-18.0); LYMPH # 1.1 (1.2-3.4); LYMPH % 11.8 % (22.0-35.0); MEAN CELL VOLUME 60.7 fl (80.0-105.0); MEAN CORPUSCULAR HGB CONC 31.3 g/dl (31.0-37.0); MONO # 0.7 (0.1-0.6); MONO % 7.4 % (1.0-6.0); PLATELET COUNT 208 10^3/uL (120.0-450.0); RBC 4.63 10^6/uL (3.5-6.1); RED CELL DISTRIBUTION WIDTH 19.7 % (11.5-14.5); WHITE BLOOD COUNT 9.3 10^3/uL (4.5-11.0)
[2018-02-10 07:21] LABS: ALB/GLOB RATIO 0.9 (1.1-1.8); ALBUMIN 3.4 g/dL (3.0-4.8); CALCIUM 8.3 mg/dL (8.4-10.5)
[2018-02-10] MEDS ORDERED: Enoxaparin 80 mg Syringe SC SCH (07:30)
[2018-02-10] MEDS: Insulin Lispro (humaLOG) MEDIUM Coverage SC SCH ×3 (07:36→17:23)
--- NOTE | 2018-02-10 08:41 | CP.PCM.CON ---
<Amber Braden - Last Filed: 02/10/18 13:31> History of Present Illness - History of Present Illness History of Present Illness: PGY-[address] Mcgee Consult: R neck abscess Mr Ken, 72M, former smoker quit 4 years ago with PMH of left neck mass Squamous cell carcinoma on radiation (week #4), invasive adenocarcioma lung cancer (Dx 12/2017), CHF with defibrillator, A fib on metoprolol/warfarin, IDDM II, HTN, presents to the ED after being referred by his radiation oncologist, Dr Grijalva for a rapidly enlarging mass on the right side of his cheek below his ear lobe. The small mass started 3 days ago, started to swell, may have nicked it from shaving Denies animal contact, recent travel or known sick contact ROS (+) trouble swallowing. No discharge Pt denies trouble breathing, fevers, chills, chest pain, SOB, or abdominal pain, dysuria, urinary frequency. A 12 point ROS was obtained and added to the HPI where appropriate. PMHx: left neck mass Squamous cell carcinoma (Bx 10/2017, currently radiation, week #05/14) Invasive adenocarcinoma of the lung (Bx 12/2017) HTN/CHF with defibrillator atrial fibrillation on warfarin/metoprolol IDDM PSH: Defibrillator (5 years ago) I+D of left groin abscess (4-5 years ago) ? b/l underarm gland removal CT guided lung Bx biopsy of mass on left side of neck/face FH: mother asthma, father "heart attack. brother has unknown ca, on feeding tube SH: 1/2ppd x 7 yrs. quit 4 yrs ago, denies alcohol, denies drugs. Lives with girlfriend in senior building All: denies Home Meds: lasix, lopressor, valsartan, coumadin, amlodipine, lipitor, flomax, lispro, levemir , metoprolol Dr Grijalva, Dr Lucio In ED, T99.1, HR 109, SBP 110s, 99RA CBC: WBC 10. Hb 10 (MCV 61.4), BUN/Cre 33/1.[address] with contrast (02/09/18): large 6.5 cm mass on L neck. R 3 x 3.8cm fluid collection with air pockets with calcification. Likely abscess or necrotic lymph node (13 [place]) Blood culture obtained. Got vanco and zosyn x 1 in ED Surgery performed bedside I&D to drain pus and specimen sent to lab Pending HIV, RPR/FTA-ABS, Bartonella DNA/AB, MRSA screen Now on merem Past Patient History - Infectious Disease Hx of Infectious Diseases: None - Past Medical History & Family History Past Medical History?: Yes - Past Social History Smoking Status: Former Smoker - CARDIAC Hx Cardiac Disorders: Yes (mi 5 yrs ago) Hx Angina: Yes Hx Cardia Arrhythmia: Yes Hx Congestive Heart Failure: Yes Hx [place] [place]x Peripheral Edema: Yes (+1) Hx Peripheral Vascular Disease: Yes Other/Comment: defib - PULMONARY Hx Respiratory Disorders: Yes (sob with exertion) - NEUROLOGICAL Hx Neurological Disorder: Yes (syncope) Hx Dizziness: Yes - HEENT Hx HEENT Problems: Yes ([place]) Hx Cataracts: Yes (b/l sx) Other/Comment: left neck mass, right neck below right ear abcess i&d today draining bloody drainage no c/o pain - RENAL Hx Chronic Kidney Disease: Yes - ENDOCRINE/METABOLIC Hx Endocrine Disorders: Yes Hx Diabetes Mellitus Type 2: Yes - HEMATOLOGICAL/ONCOLOGICAL Hx Blood Disorders: Yes Hx Anemia: Yes Hx Cancer: Yes (left neck mass squamous cell) Hx Chemotherapy: Yes Other/Comment: had 4 weeks of radiation treatments, 3 weeks left on chemo once a week - INTEGUMENTARY Hx Dermatological Problems: Yes Hx Squamous Cell: Yes (head/neck) Other/Comment: dry thick toenails and dry ski both feet, dry skin ble, left neck mass, r neck abcess i&d today dressing intact some bloody dng noted no c/o pain, lipoma - MUSCULOSKELETAL/RHEUMATOLOGICAL Hx Falls: No - GASTROINTESTINAL Hx Gastrointestinal Disorders: No - GENITOURINARY/GYNECOLOGICAL Hx Genitourinary Disorders: No - PSYCHIATRIC Hx Substance Use: No - SURGICAL HISTORY Hx Surgeries: Yes Other/Comment: ct scan guided lung bx, neck bx 10/2017, I&D right neck abcess - ANESTHESIA Hx Anesthesia Reactions: No Hx Malignant Hyperthermia: No Meds Allergies/Adverse Reactions: Allergies Allergy/AdvReac Type Severity Reaction Status Date / Time No Known Allergies Allergy Verified 12/19/17 16:05 - Medications Medications: Current Medications Amlodipine Besylate (Norvasc) 10 mg PO DAILY [facility] Atorvastatin Calcium (Lipitor) 80 mg PO HS [facility] Last Admin: 02/09/18 21:22 Dose: 80 mg Dextrose (Dextrose 50% Inj) 0 ml IV STAT PRN; Protocol PRN Reason: Hypoglycemia Protocol Enoxaparin Sodium (Lovenox) 80 mg SC Q12H [facility]; Protocol Furosemide (Lasix) 40 mg PO DAILY [facility] Sodium Chloride (Sodium Chloride 0.9%) 500 mls @ 60 mls/hr IV .Q8H20M [facility] Last Admin: 02/10/18 01:18 Dose: 60 mls/hr Dextrose (Dextrose 5% In Water 1000 Ml) 1,000 mls @ 0 mls/hr IV .Q0M PRN; Protocol PRN Reason: Hypoglycemia Protocol Meropenem (Merrem Iv 1 Gm Premix) 1 gm in 50 mls @ 100 mls/hr IVPB Q12 [facility]; Protocol Stop: 02/18/18 22:31 Last Admin: 02/09/18 22:48 Dose: 100 mls/hr Insulin Detemir (Levemir) 10 unit SC BRKDIN [facility] Last Admin: 02/09/18 18:40 Dose: 10 u Insulin Human Lispro (Humalog Med) 0 units SC ACHS [facility]; Protocol Last Admin: 02/10/18 07:36 Dose: Not Given Losartan Potassium (Cozaar) 50 mg PO DAILY [facility] Metoprolol Tartrate (Lopressor) 50 mg PO DAILY [facility] Tamsulosin HCl (Flomax) 0.4 mg PO DAILY [facility] Warfarin Sodium (Coumadin) 5 mg PO 1200 [facility]; Protocol Stop: 02/10/18 12:01 Physical Exam - Constitutional Appears: No Acute Distress - Head Exam Head Exam: ATRAUMATIC, NORMAL INSPECTION, NORMOCEPHALIC - Eye Exam Eye Exam: EOMI, Normal appearance, PERRL. absent: Scleral icterus Pupil Exam: NORMAL ACCOMODATION Additional comments: R neck round induration 2 inch diameter, serosanquinous drainage, no overlaying redness, very tender - ENT Exam ENT Exam: Mucous Membranes Moist - Neck Exam Neck exam: Positive for: Tenderness - Respiratory Exam Respiratory Exam: Clear to Auscultation Bilateral. absent: Decreased Breath Sounds, Rales, Rhonchi, Wheezes - Cardiovascular Exam Cardiovascular Exam: REGULAR RHYTHM, +S1, +S2. absent: Systolic Murmur - GI/Abdominal Exam GI & Abdominal Exam: Normal Bowel Sounds, Soft. absent: Distended, Firm, Guarding, Rigid, Tenderness - Extremities Exam Extremities exam: Positive for: normal inspection. Negative for: calf tenderness, pedal edema - Back Exam Back exam: absent: CVA tenderness (L), CVA tenderness (R) - Neurological Exam Neurological exam: Alert, Oriented x3 - Psychiatric Exam Psychiatric exam: Normal Affect, Normal Mood - Skin Skin Exam: Dry, Warm Results - Vital Signs Recent Vital Signs: Last Vital Signs Temp 97.5 F L 02/10/18 08:21 Pulse 88 02/10/18 08:21 Resp 20 02/10/18 08:21 BP 124/89 02/10/18 08:21 Pulse Ox 100 02/10/18 08:21 - Labs Result Diagrams: 02/10/18 05:44 02/10/18 05:44 Labs: Laboratory Results - last 24 hr 02/09/18 02/09/18 02/09/18 10:49 11:35 11:35 WBC 10.4 D RBC 5.16 Hgb 10.0 L Hct 31.7 L MCV 61.4 L MCH 19.4 L MCHC 31.5 RDW 19.6 H Plt Count 217 Gran % 77.3 H Lymph % (Auto) 11.5 L [place] % (Auto) 6.3 H Eos % (Auto) 4.5 Baso % (Auto) 0.4 Gran # 8.04 H Lymph # (Auto) 1.2 [place] # (Auto) 0.7 H Eos # (Auto) 0.5 Baso # (Auto) 0.04 Retic Count PT INR APTT Sodium 138 Potassium 3.9 Chloride 95 L Carbon Dioxide 33 Anion Gap 14 BUN 33 H Creatinine 1.3 Est GFR ( Amer) > 60 Est GFR (Non-Af Amer) 54 POC Glucose (mg/dL) 252 H Random Glucose 265 H Calcium 8.8 Total Bilirubin 1.1 AST 19 ALT 21 Alkaline Phosphatase 131 H Total Protein 8.2 Albumin 3.8 Globulin 4.4 Albumin/Globulin Ratio 0.9 L 02/09/18 02/09/18 02/10/18 11:35 21:42 05:44 WBC 9.3 RBC 4.63 Hgb 8.8 L Hct 28.1 L MCV 60.7 L MCH 19.0 L MCHC 31.3 RDW 19.7 H Plt Count 208 Gran % 75.5 H Lymph % (Auto) 11.8 L [place] % (Auto) 7.4 H Eos % (Auto) 5.0 Baso % (Auto) 0.3 Gran # 7.00 H Lymph # (Auto) 1.1 L [place] # (Auto) 0.7 H Eos # (Auto) 0.5 Baso # (Auto) 0.03 Retic Count PT 14.6 H INR 1.26 APTT 28.1 Sodium Potassium Chloride Carbon Dioxide Anion Gap BUN Creatinine Est GFR ( Amer) Est GFR (Non-Af Amer) POC Glucose (mg/dL) 311 H Random Glucose Calcium Total Bilirubin AST ALT Alkaline Phosphatase Total Protein Albumin Globulin Albumin/Globulin Ratio 02/10/18 02/10/18 02/10/18 05:44 05:44 07:18 WBC RBC Hgb Hct MCV MCH MCHC RDW Plt Count Gran % Lymph % (Auto) [place] % (Auto) Eos % (Auto) Baso % (Auto) Gran # Lymph # (Auto) [place] # (Auto) Eos # (Auto) Baso # (Auto) Retic Count 0.46 L PT INR APTT Sodium 136 Potassium 4.1 Chloride 96 L Carbon Dioxide 33 Anion Gap 11 BUN 35 H Creatinine 1.6 H Est GFR ( Amer) 52 Est GFR (Non-Af Amer) 43 POC Glucose (mg/dL) 128 H Random Glucose 168 H Calcium 8.3 L Total Bilirubin 1.0 AST 23 ALT 19 Alkaline Phosphatase 114 Total Protein 7.3 Albumin 3.4 Globulin 3.9 Albumin/Globulin Ratio 0.9 L Assessment & Plan - Assessment and Plan (Free Text) Plan: Mr Ken, 72M, former smoker quit 4 years ago with PMH of left neck mass Squamous cell carcinoma on radiation (week #4), invasive adenocarcioma lung cancer (Dx 12/2017), CHF with defibrillator, atrial fibrillation on metoprolol/warfarin, IDDM II, HTN admitted for abscess on the right side of his cheek below his ear lobe Abscess R neck (SIRS 1/4) NORRIS (Cre 1.6) PMH of left neck mass Squamous cell carcinoma on radiation (week #4), invasive adenocarcioma lung cancer (Dx 12/2017) former smoker quit 4 years IDDM - Merem 1gq12 (day 2) - s/p vanco (total 2 doses) and zosyn x 1 in ED - follow on HIV, RPR/FTA-ABS, Bartonella DNA/AB, MRSA screen - follow up A1C Imaging/Lab - Maxillofacial CT with contrast (02/09/18): large 6.5 cm mass on L neck. R 3 x 3.8cm fluid collection with air pockets with calcification. Likely abscess or necrotic lymph node (13 [place]) - B Cx: - W Cx: few GP cocci in chains, cluster, gram neg rods - W Cx: Many GN rods, few GP cocci in cluster/GP bacilli s/r/d/w Dr Mcgee <Jai Mcgee S - Last Filed: 02/10/18 19:36> Meds - Medications Medications: Current Medications Atorvastatin Calcium (Lipitor) 80 mg PO HS [facility] Last Admin: 02/09/18 21:22 Dose: 80 mg Dextrose (Dextrose 50% Inj) 0 ml IV STAT PRN; Protocol PRN Reason: Hypoglycemia Protocol Enoxaparin Sodium (Lovenox) 80 mg SC DAILY [facility]; Protocol Stop: 02/11/18 23:59 Last Admin: 02/10/18 17:24 Dose: 80 mg Furosemide (Lasix) 40 mg PO DAILY [facility] Last Admin: 02/10/18 09:24 Dose: 40 mg Sodium Chloride (Sodium Chloride 0.9%) 500 mls @ 60 mls/hr IV .Q8H20M [facility] Last Admin: 02/10/18 01:18 Dose: 60 mls/hr Dextrose (Dextrose 5% In Water 1000 Ml) 1,000 mls @ 0 mls/hr IV .Q0M PRN; Protocol PRN Reason: Hypoglycemia Protocol Meropenem (Merrem Iv 1 Gm Premix) 1 gm in 50 mls @ 100 mls/hr IVPB Q12 [facility]; Protocol Stop: 02/18/18 22:31 Last Admin: 02/10/18 09:26 Dose: 100 mls/hr Insulin Detemir (Levemir) 10 unit SC BRKDIN [facility] Last Admin: 02/10/18 17:24 Dose: 10 u Insulin Human Lispro (Humalog Med) 0 units SC ACHS [facility]; Protocol Last Admin: 02/10/18 17:23 Dose: 1 unit Losartan Potassium (Cozaar) 25 mg PO DAILY [facility] Metoprolol Succinate (Toprol Xl) 50 mg PO BRK [facility] Last Admin: 02/10/18 15:40 Dose: 50 mg Tamsulosin HCl (Flomax) 0.4 mg PO DAILY [facility] Last Admin: 02/10/18 09:25 Dose: 0.4 mg Verapamil HCl (Calan Tab) 40 mg PO TID [facility] Last Admin: 02/10/18 17:23 Dose: 40 mg Warfarin Sodium (Coumadin) 5 mg PO 1800 [facility]; Protocol Results - Vital Signs Recent Vital Signs: Last Vital Signs Temp 98.0 F 02/10/18 16:38 Pulse 91 H 02/10/18 16:38 Resp 19 02/10/18 16:38 BP 130/90 02/10/18 17:23 Pulse Ox 96 02/10/18 16:38 - Labs Result Diagrams: 02/10/18 05:44 02/10/18 05:44 Labs: Laboratory Results - last 24 hr 02/09/18 02/09/18 02/10/18 10:49 21:42 05:44 WBC RBC Hgb Hct MCV MCH MCHC RDW Plt Count Gran % Lymph % (Auto) [place] % (Auto) Eos % (Auto) Baso % (Auto) Gran # Lymph # (Auto) [place] # (Auto) Eos # (Auto) Baso # (Auto) Retic Count PT INR Sodium Potassium Chloride Carbon Dioxide Anion Gap BUN Creatinine Est GFR ( Amer) Est GFR (Non-Af Amer) POC Glucose (mg/dL) 252 H 311 H Random Glucose Calcium Ferritin Total Bilirubin AST ALT Alkaline Phosphatase Total Protein Albumin Globulin Albumin/Globulin Ratio Folate RPR Nonreactive 02/10/18 02/10/18 02/10/18 05:44 05:44 05:44 WBC 9.3 RBC 4.63 Hgb 8.8 L Hct 28.1 L MCV 60.7 L MCH 19.0 L MCHC 31.3 RDW 19.7 H Plt Count 208 Gran % 75.5 H Lymph % (Auto) 11.8 L [place] % (Auto) 7.4 H Eos % (Auto) 5.0 Baso % (Auto) 0.3 Gran # 7.00 H Lymph # (Auto) 1.1 L [place] # (Auto) 0.7 H Eos # (Auto) 0.5 Baso # (Auto) 0.03 Retic Count 0.46 L PT INR Sodium 136 Potassium 4.1 Chloride 96 L Carbon Dioxide 33 Anion Gap 11 BUN 35 H Creatinine 1.6 H Est GFR ( Amer) 52 Est GFR (Non-Af Amer) 43 POC Glucose (mg/dL) Random Glucose 168 H Calcium 8.3 L Ferritin 165.0 Total Bilirubin 1.0 AST 23 ALT 19 Alkaline Phosphatase 114 Total Protein 7.3 Albumin 3.4 Globulin 3.9 Albumin/Globulin Ratio 0.9 L Folate 4.5 RPR 02/10/18 02/10/18 02/10/18 07:18 10:25 12:02 WBC RBC Hgb Hct MCV MCH MCHC RDW Plt Count Gran % Lymph % (Auto) [place] % (Auto) Eos % (Auto) Baso % (Auto) Gran # Lymph # (Auto) [place] # (Auto) Eos # (Auto) Baso # (Auto) Retic Count PT 15.0 H INR 1.30 Sodium Potassium Chloride Carbon Dioxide Anion Gap BUN Creatinine Est GFR ( Amer) Est GFR (Non-Af Amer) POC Glucose (mg/dL) 128 H 113 H Random Glucose Calcium Ferritin Total Bilirubin AST ALT Alkaline Phosphatase Total Protein Albumin Globulin Albumin/Globulin Ratio Folate RPR 02/10/18 16:15 WBC RBC Hgb Hct MCV MCH MCHC RDW Plt Count Gran % Lymph % (Auto) [place] % (Auto) Eos % (Auto) Baso % (Auto) Gran # Lymph # (Auto) [place] # (Auto) Eos # (Auto) Baso # (Auto) Retic Count PT INR Sodium Potassium Chloride Carbon Dioxide Anion Gap BUN Creatinine Est GFR ( Amer) Est GFR (Non-Af Amer) POC Glucose (mg/dL) 190 H Random Glucose Calcium Ferritin Total Bilirubin AST ALT Alkaline Phosphatase Total Protein Albumin Globulin Albumin/Globulin Ratio Folate RPR Assessment & Plan - Assessment and Plan (Free Text) Plan: Infectious diseases Attending Physician Attestation Patient seen and examined, discussed with infertility medical assistant. I have reviewed the patient's history of present illness, past medical, social, personal and family histories, pertinent physical exam findings, course so far in this hospital admission, pertinent laboratory and imaging results. I agree with the above findings, assessment and plan. In addition, we have started a dose of IV Vancomycin and Merrem for patient with right neck abscess or necrotic lympha denitis in this patient with squamous cell cancer of the marie on radiation, as well as lung cancer. Drainage has been done and will follow up cultures.
--- NOTE | 2018-02-10 08:49 | CP.PCM.PN ---
Subjective - Date & Time of Evaluation Date of Evaluation: 02/10/18 Time of Evaluation: 07:44 - Subjective Subjective: PGY-1 Catalina Romero D.O. Surgery progress note for Dr. Delcid: Patient was seen and examined this morning. He states he feels about the same. The R neck mass that was drained yesterday is sore. He denies problems with swallowing, talking, breathing. He denies fevers or chills. Objective - Vital Signs/Intake and Output Vital Signs (last 24 hours): Temp Pulse Resp BP Pulse Ox 97.5 F L 88 20 124/89 100 02/10/18 08:21 02/10/18 08:21 02/10/18 08:21 02/10/18 08:21 02/10/18 08:21 - Medications Medications: Current Medications Amlodipine Besylate (Norvasc) 10 mg PO DAILY [facility] Atorvastatin Calcium (Lipitor) 80 mg PO HS [facility] Last Admin: 02/09/18 21:22 Dose: 80 mg Dextrose (Dextrose 50% Inj) 0 ml IV STAT PRN; Protocol PRN Reason: Hypoglycemia Protocol Enoxaparin Sodium (Lovenox) 80 mg SC Q12H [facility]; Protocol Furosemide (Lasix) 40 mg PO DAILY [facility] Sodium Chloride (Sodium Chloride 0.9%) 500 mls @ 60 mls/hr IV .Q8H20M [facility] Last Admin: 02/10/18 01:18 Dose: 60 mls/hr Dextrose (Dextrose 5% In Water 1000 Ml) 1,000 mls @ 0 mls/hr IV .Q0M PRN; Protocol PRN Reason: Hypoglycemia Protocol Meropenem (Merrem Iv 1 Gm Premix) 1 gm in 50 mls @ 100 mls/hr IVPB Q12 [facility]; Protocol Stop: 02/18/18 22:31 Last Admin: 02/09/18 22:48 Dose: 100 mls/hr Insulin Detemir (Levemir) 10 unit SC BRKDIN [facility] Last Admin: 02/09/18 18:40 Dose: 10 u Insulin Human Lispro (Humalog Med) 0 units SC ACHS [facility]; Protocol Last Admin: 02/10/18 07:36 Dose: Not Given Losartan Potassium (Cozaar) 50 mg PO DAILY [facility] Metoprolol Tartrate (Lopressor) 50 mg PO DAILY [facility] Tamsulosin HCl (Flomax) 0.4 mg PO DAILY [facility] Warfarin Sodium (Coumadin) 5 mg PO 1200 [facility]; Protocol Stop: 02/10/18 12:01 - Labs Labs: 02/10/18 05:44 02/10/18 05:44 PT 14.6 SECONDS (9.4-12.5) H 02/09/18 11:35 INR 1.26 02/09/18 11:35 APTT 28.1 Seconds (25.1-36.5) 02/09/18 11:35 - Constitutional Appears: Non-toxic, No Acute Distress - Head Exam Additional comments: R-sided neck mass drained yesterday covered in clean dry bandage, minimal dried blood, no drainage - Eye Exam Eye Exam: EOMI, Normal appearance - ENT Exam ENT Exam: Mucous Membranes Moist - Neck Exam Additional comments: large L-sided neck mass, nontender, known site of CA currently undergoing radiation - Respiratory Exam Respiratory Exam: NORMAL BREATHING PATTERN. absent: Accessory Muscle Use, Re spiratory Distress - Cardiovascular Exam Cardiovascular Exam: REGULAR RHYTHM - GI/Abdominal Exam GI & Abdominal Exam: Soft. absent: Distended, Tenderness - Extremities Exam Extremities Exam: Normal Inspection - Neurological Exam Neurological Exam: Alert, Awake, CN II-XII Intact, Oriented x3 - Psychiatric Exam Psychiatric exam: Normal Affect, Normal Mood - Skin Skin Exam: Dry, Normal Color, Warm Assessment and Plan - Assessment and Plan (Free Text) Assessment: 72M with R-sided facial sebaceous cyst, drained yesterday 02/09 Plan: - Maxillofacial CT: 3 x 3.8 cm fluid collection containing pockets of air and calcifications consistent with abscess or necrotic LN - f/u Cx - Analgesics PRN - Antibiotics as per ID - Continue with oncology recommendations Further recs as per attending, Dr. Delcid.
[2018-02-10] MEDS: Meropenem IV 1 gm in NS 1 GM/50 ML BAG IVPB SCH ×2 (09:26→21:02)
[2018-02-10] MEDS: Insulin Detemir 100 units/ml Vial (Levemir) SC SCH ×2 (09:27→17:24)
--- NOTE | 2018-02-10 09:35 | CP.PCM.PN ---
Subjective - Date & Time of Evaluation Date of Evaluation: 02/10/18 Time of Evaluation: 09:30 - Subjective Subjective: Mr Aguilera is known to our department with a locally advanced head and neck cancer. He acutely developed a right neck mass, and was sent to the emergency room. He had I&D yesterday. He is feeling much better today. For today, we have held his RT. We will check again on him on Tuesday to determine when to resume his radiation Objective - Vital Signs/Intake and Output Vital Signs (last 24 hours): Temp Pulse Resp BP Pulse Ox 97.5 F L 88 20 124/89 100 02/10/18 08:21 02/10/18 09:26 02/10/18 08:21 02/10/18 09:26 02/10/18 08:21 - Medications Medications: Current Medications Amlodipine Besylate (Norvasc) 10 mg PO DAILY [facility] Last Admin: 02/10/18 09:26 Dose: 10 mg Atorvastatin Calcium (Lipitor) 80 mg PO HS [facility] Last Admin: 02/09/18 21:22 Dose: 80 mg Dextrose (Dextrose 50% Inj) 0 ml IV STAT PRN; Protocol PRN Reason: Hypoglycemia Protocol Furosemide (Lasix) 40 mg PO DAILY [facility] Last Admin: 02/10/18 09:24 Dose: 40 mg Sodium Chloride (Sodium Chloride 0.9%) 500 mls @ 60 mls/hr IV .Q8H20M [facility] Last Admin: 02/10/18 01:18 Dose: 60 mls/hr Dextrose (Dextrose 5% In Water 1000 Ml) 1,000 mls @ 0 mls/hr IV .Q0M PRN; Protocol PRN Reason: Hypoglycemia Protocol Meropenem (Merrem Iv 1 Gm Premix) 1 gm in 50 mls @ 100 mls/hr IVPB Q12 DAVID; Protocol Stop: 02/18/18 22:31 Last Admin: 02/10/18 09:26 Dose: 100 mls/hr Insulin Detemir (Levemir) 10 unit SC BRKDIN [facility] Last Admin: 02/10/18 09:27 Dose: 10 u Insulin Human Lispro (Humalog Med) 0 units SC ACHS [facility]; Protocol Last Admin: 02/10/18 07:36 Dose: Not Given Losartan Potassium (Cozaar) 50 mg PO DAILY [facility] Last Admin: 02/10/18 09:25 Dose: 50 mg Metoprolol Tartrate (Lopressor) 50 mg PO DAILY [facility] Last Admin: 02/10/18 09:26 Dose: 50 mg Tamsulosin HCl (Flomax) 0.4 mg PO DAILY [facility] Last Admin: 02/10/18 09:25 Dose: 0.4 mg Warfarin Sodium (Coumadin) 5 mg PO 1200 ONE; Protocol Stop: 02/10/18 12:01 - Labs Labs: 02/10/18 05:44 02/10/18 05:44 PT 14.6 SECONDS (9.4-12.5) H 02/09/18 11:35 INR 1.26 02/09/18 11:35 APTT 28.1 Seconds (25.1-36.5) 02/09/18 11:35
--- NOTE | 2018-02-10 09:37 | PCM.SURG1 ---
Surgeon's Initial Post Op Note - Surgeon's Notes Surgeon: Dr. Delcid Tripe Scraper: PGY2 Type of Anesthesia: Local Anesthesia Administered By: self Pre-Operative Diagnosis: Right neck abscess/mass Operative Findings: thick, purulent, malodorous fluid expressed from wound. Unable to aspirate only due to the thickness of discharge. Resembles infected sebaceous cyst. Post-Operative Diagnosis: Infected Right neck sebaceous cyst Operation Performed: 1. Aspiration of Neck mass. 2. Incision and drainage of Right neck abscesses Specimen/Specimens Removed: fluid culture x2. 1. initial apsirate. 2. fluid directly from cavity Estimated Blood Loss: EBL {In ML}: 2 Drains Used: No Drains Post-Op Condition: Fair Date of Surgery/Procedure: 02/09/18 Time of Surgery/Procedure: 18:20
[2018-02-10] MEDS ORDERED: Insulin Detemir 100 units/ml Vial (Levemir) SC SCH (10:00)
[2018-02-10 10:46] LABS: INR 1.3
--- NOTE | 2018-02-10 12:54 | RAD ---
Date of service: 02/10/2018 HISTORY: r/o vasc congestion COMPARISON: 01/03/2018 TECHNIQUE: Chest PA and lateral FINDINGS: LUNGS: No active pulmonary disease. PLEURA: No significant pleural effusion identified. No pneumothorax apparent. CARDIOVASCULAR: Aortic calcification Moderate cardiomegaly no pulmonary vascular congestion. OSSEOUS STRUCTURES: No significant abnormalities. VISUALIZED UPPER ABDOMEN: Normal. OTHER FINDINGS: Single lead pacemaker IMPRESSION: No active disease.
[2018-02-10 13:03] LABS: FOLATE 4.5 ng/mL
--- NOTE | 2018-02-10 13:29 | CP.PCM.PN ---
<Abraham Urrutia - Last Filed: 02/10/18 14:25> Subjective - Date & Time of Evaluation Date of Evaluation: 02/10/18 Time of Evaluation: 07:00 - Subjective Subjective: Pt seen and examined. Pt denies new complaints. Pt reports that the right side of his face is still mildly tender. Objective - Vital Signs/Intake and Output Vital Signs (last 24 hours): Temp Pulse Resp BP Pulse Ox 97.5 F L 88 20 124/89 100 02/10/18 08:21 02/10/18 09:26 02/10/18 08:21 02/10/18 09:26 02/10/18 08:21 - Medications Medications: Current Medications Amlodipine Besylate (Norvasc) 10 mg PO DAILY [facility] Last Admin: 02/10/18 09:26 Dose: 10 mg Atorvastatin Calcium (Lipitor) 80 mg PO HS [facility] Last Admin: 02/09/18 21:22 Dose: 80 mg Dextrose (Dextrose 50% Inj) 0 ml IV STAT PRN; Protocol PRN Reason: Hypoglycemia Protocol Furosemide (Lasix) 40 mg PO DAILY [facility] Last Admin: 02/10/18 09:24 Dose: 40 mg Sodium Chloride (Sodium Chloride 0.9%) 500 mls @ 60 mls/hr IV .Q8H20M [facility] Last Admin: 02/10/18 01:18 Dose: 60 mls/hr Dextrose (Dextrose 5% In Water 1000 Ml) 1,000 mls @ 0 mls/hr IV .Q0M PRN; Protocol PRN Reason: Hypoglycemia Protocol Meropenem (Merrem Iv 1 Gm Premix) 1 gm in 50 mls @ 100 mls/hr IVPB Q12 DAVID; Protocol Stop: 02/18/18 22:31 Last Admin: 02/10/18 09:26 Dose: 100 mls/hr Vancomycin HCl (Vancomycin 1gm) 1 gm in 250 mls @ 167 mls/hr IVPB ONCE ONE; Protocol Stop: 02/10/18 16:29 Insulin Detemir (Levemir) 10 unit SC BRKDIN [facility] Last Admin: 02/10/18 09:27 Dose: 10 u Insulin Human Lispro (Humalog Med) 0 units SC ACHS [facility]; Protocol Last Admin: 02/10/18 12:09 Dose: Not Given Losartan Potassium (Cozaar) 50 mg PO DAILY [facility] Last Admin: 02/10/18 09:25 Dose: 50 mg Metoprolol Succinate (Toprol Xl) 50 mg PO DAILY [facility] Tamsulosin HCl (Flomax) 0.4 mg PO DAILY [facility] Last Admin: 02/10/18 09:25 Dose: 0.4 mg - Labs Labs: 02/10/18 05:44 02/10/18 05:44 PT 15.0 SECONDS (9.4-12.5) H 02/10/18 10:25 INR 1.30 02/10/18 10:25 APTT 28.1 Seconds (25.1-36.5) 02/09/18 11:35 - Head Exam Head Exam: ATRAUMATIC, NORMOCEPHALIC - Eye Exam Eye Exam: EOMI - ENT Exam ENT Exam: Mucous Membranes Moist - Respiratory Exam Respiratory Exam: Clear to Ausculation Bilateral, NORMAL BREATHING PATTERN - Cardiovascular Exam Cardiovascular Exam: Irregular Rhythm, +S1, +S2 - GI/Abdominal Exam GI & Abdominal Exam: Soft, Normal Bowel Sounds. absent: Tenderness - Extremities Exam Extremities Exam: Full ROM. absent: Pedal Edema - Neurological Exam Neurological Exam: Alert, Awake, Oriented x3 - Psychiatric Exam Psychiatric exam: Normal Affect, Normal Mood - Skin Skin Exam: Dry, Normal Color, Warm Assessment and Plan - Assessment and Plan (Free Text) Assessment: Pt is a 72yo male with a PMH of CHF atrial fibrillation, diabetes type II, HTN, left neck mass Squamous cell carcinoma, non small cell lung cancer of the lung who presents to the ED after being refereed by his radiation oncologist, Dr Grijalva for a rapidly enlarging mass on the right side of his cheek below his ear lobe. Plan: Abscess Right side of head/neck - hx of left neck mass Squamous cell carcinoma - Surgery, Dr Delcid abscess I+D yesterday, cultures obtained - Radiation onc, Dr Grijalva, will check pt again on Tuesday and determine when to resume his radiation - Heme/onc, Dr Lucio - ID, Everardo rec Meropenem non small cell lung cancer of the lung - continue to follow with Dr Valentine Shin, continue current chemotherapy and radiation CHF - toprol 50 daily - losartan 50 Atrial Fibrillation - restart coumadin 5 - cardio consulted, Dr Moseley Diabetes type II - levemir 10 units - lispro ACHS 6 untis HLD - lipitor 80 HTN - amlodipine 10 BPH - flomax Ppx - heparin - HHD Pt seen, examined, assessment and plan discussed with Dr Deanne Urrutia PGY1, Internal Medicine Resident <Deanne Villarreal R - Last Filed: 02/12/18 16:49> Objective - Vital Signs/Intake and Output Vital Signs (last 24 hours): Temp Pulse Resp BP Pulse Ox 97.9 F 95 H 20 125/75 97 02/12/18 06:00 02/12/18 13:24 02/12/18 06:00 02/12/18 13:24 02/12/18 06:00 Intake and Output: 02/12/18 02/12/18 06:59 18:59 Intake Total 1040 Output Total 1550 Balance -510 - Medications Medications: Current Medications Atorvastatin Calcium (Lipitor) 80 mg PO HS [facility] Last Admin: 02/11/18 22:21 Dose: 80 mg Dextrose (Dextrose 50% Inj) 0 ml IV STAT PRN; Protocol PRN Reason: Hypoglycemia Protocol Furosemide (Lasix) 40 mg PO DAILY [facility] Last Admin: 02/10/18 09:24 Dose: 40 mg Dextrose (Dextrose 5% In Water 1000 Ml) 1,000 mls @ 0 mls/hr IV .Q0M PRN; Protocol PRN Reason: Hypoglycemia Protocol Meropenem (Merrem Iv 1 Gm Premix) 1 gm in 50 mls @ 100 mls/hr IVPB Q12 DAVID; Protocol Stop: 02/18/18 22:31 Last Admin: 02/12/18 10:08 Dose: 100 mls/hr Sodium Chloride (Sodium Chloride 0.9%) 1,000 mls @ 60 mls/hr IV .Q12C40X [facility] Last Admin: 02/12/18 02:10 Dose: 60 mls/hr Insulin Detemir (Levemir) 8 unit SC BRKDIN [facility] Last Admin: 02/12/18 16:21 Dose: 8 units Insulin Human Lispro (Humalog Med) 0 units SC ACHS [facility]; Protocol Last Admin: 02/12/18 16:16 Dose: Not Given Losartan Potassium (Cozaar) 25 mg PO DAILY [facility] Last Admin: 02/12/18 10:09 Dose: 25 mg Metoprolol Succinate (Toprol Xl) 50 mg PO BRK [facility] Last Admin: 01/06/19 08:01 Dose: 50 mg Tamsulosin HCl (Flomax) 0.4 mg PO DAILY [facility] Last Admin: 02/12/18 10:09 Dose: 0.4 mg Verapamil HCl (Calan Tab) 40 mg PO TID [facility] Last Admin: 02/12/18 13:24 Dose: 40 mg Warfarin Sodium (Coumadin) 10 mg PO 1800 [facility]; Protocol - Labs Labs: 02/12/18 05:30 02/12/18 05:30 PT 14.3 SECONDS (9.4-12.5) H 02/12/18 05:30 INR 1.24 02/12/18 05:30 APTT 28.1 Seconds (25.1-36.5) 02/09/18 11:35 Attending/Attestation - Attestation I have personally seen and examined this patient.: Yes I have fully participated in the care of the patient.: Yes I have reviewed all pertinent clinical information, including history, physical exam and plan: Yes Notes (Text): Patient seen and examined by me with resident at 10:35 AM on 02/10/18. Case including HPI, physical exam, and assessment and plan discussed with resident. Agree with above with following additions/corrections. 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 Patient states he is feeling ok. States the area at his right ear feels sore and is worse when it is touched. No ear pain. No fevers or chills. Patient denies any chest pain or shortness of breath. No palpitations. No headaches or dizziness. No nausea, vomiting, or abdominal pain. No dysuria. Physical exam: General: Awake and alert lying in bed in no acute distress HEENT: Normocephalic, atraumatic. Extraocular muscles intact, pupils equal and reactive, no scleral icterus. Oropharynx is pink and moist. No pharyngeal erythema or exudate appreciated. Large mass left neck. Mass on right decreased in size; dressing clean, dry, and intact; tender to palpitation. Hearing grossly decreased. Cardiovascular: Irregularly irregular rhythm. No murmurs, rubs, or gallops appreciated Pulmonary: Normal respiratory effort. No rhonchi, rales, or wheezing appreciated Gastrointestinal: Soft. Nondistended. Nontender. Positive bowel sounds all 4 quadrants. No guarding. Musculoskeletal: Moves all extremities. No calf tenderness. No edema appreciated. No CVA tenderness. Central nervous system: AAOx 3, CN 2-12 grossly intact Dermatologic: Skin warm and dry. 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 1. Abscess vs necrotic lymph node. S/P bedside draining of pus, cavity irrigation, probing to break up loculations, and packing with guaze 02/09/18 with surgical team. Cultures pending.ID following, recommendations appreciated. Continue Merrem. Patient afebrile. Maxillofacial CT per radiologist showed large 6.5cm mass on left side of neck, this surrounds and obliterates the left sternocleidomastoid muscle and left jugular vein, consistent with known history of squamous cell head and neck cancer; on right side, there is a 3 x 3.8 cm fluid collection containing pockets of air, calcifications are seen within the fluid matrix, fluid measures 13 Housenfielf units, probably represents an abscess or necrotic lymph node. 2. Dysphagia. Per patient, he is still able to eat. Per speech and swallow continue regular diet with thin liquids. Aspiration precautions. 3. NORRIS. Lasix held. Creatinine increasing. Continue low dose IV fluids. Follow up repeat labs in AM. 4. Atrial fibrillation with RVR. Cardiology following, recommendations appreciated. Medications adjusted by cardiology. Continue Toprol XL. Verapamil added. INR subtherapeutic. Given therapeutic lovenox renally dosed per cardio. Continue Coumadin. Follow up repeat labs in AM. 5. Chronic systolic CHF. Compensated. Home Lasix held for now secondary to NORRIS a nd dehydration. Continue Toprol XL and cozaar 6. DM2. Continue insulin sliding scale. Continue Levemir. Continue to monitor accuchecks. 7. Essential hypertension. Continue Toprol XL, Cozaar, and Verapamil. 8. Hyperlipidemia. Continue home Lipitor 9. BPH. Continue home Flomax 10. Anemia. Chronic. On feosol at home. At baseline. Continue to monitor H&H. 11. Head and neck cancer/nonsmall cell lung cancer. Hem/onc consulted. On chemo and radiation outpatient. 12. DVT prophylaxis. Lovenox 13. Patient is a full code Case was discussed in detail with the patient regarding current diagnosis and tr eatment plan. All questions answered.
[2018-02-10] MEDS ORDERED: Vancomycin 1gm in NS 250ml 1 GM/250 ML BAG IVPB ONE (15:00)
[2018-02-10] MEDS: Metoprolol Succinate 50 mg XL Tab PO SCH (15:40)
--- NOTE | 2018-02-10 15:54 | CP.PCM.PCO ---
Physician Communication Note - Physician Communication Note Physician Communication Note: POD1 Aspiration neck mass,I/D,wound cx pending,on antibiotics,
--- NOTE | 2018-02-10 15:57 | CP.PCM.PCO ---
Physician Communication Note - Physician Communication Note Physician Communication Note: Pt rapid afib earlier,HR presently 116,Toprol xl 50 ordered, with pt
[2018-02-10] MEDS: Enoxaparin 80 mg Syringe SC SCH (17:24)
--- NOTE | 2018-02-10 22:47 | CON ---
DATE: 02/10/2018 REASON FOR CONSULTATION: Cardiomyopathy nonischemic, status post AICD, history of chronic atrial fibrillation with rapid AFib with rapid ventricular rate, and right neck mass. BRIEF CLINICAL HISTORY: This is a 72-year-old male with past medical history of chronic atrial fibrillation; six-year history of nonischemic cardiomyopathy, status post AICD; history of hypertension, recently diagnosed squamous cell carcinoma of the lung, status post four weeks of and three more weeks of radiation to go. The patient developed lung mass and abscess was drained today, right side neck mass and abscess was drained. The patient was found to be in AFib with rapid ventricular rate, so Cardiology consult was called for cardiac evaluation and followup. The patient denies any chest pain, denies any shortness of breath, and denies any palpitations. PAST MEDICAL HISTORY: Significant for nonischemic cardiomyopathy, congestive heart failure secondary to systolic dysfunction, chronic atrial fibrillation, diabetes, hypertension, hyperlipidemia, history of lung cancer, history of AICD placed and being followed by Dr. Benítez and Dr. Raya. PREVIOUS CARDIAC WORKUP: As follows; the patient had a cardiac catheterization six years ago according to him found to be no blockage, but heart muscles are weak. SOCIAL HISTORY: Quit smoking many years ago, history of alcohol consumption. According to the patient is [id number], but nothing heavy, never get drunk. As mentioned, tobacco smoker [id number], quit 10 years ago and mentioned moderate alcohol consumption. PAST SURGICAL HISTORY: Significant for groin abscess drained, history of biopsy of the neck and mass and found to be squamous cell carcinoma of the neck as well as [id number] cancer of the lung. FAMILY HISTORY: Significant for asthma and father has coronary artery disease and of heart attack. ALLERGIES: DENIES ANY HISTORY OF ALLERGY. CURRENT MEDICATIONS: The patient had completed four cycles of radiation and three more cycles of chemo to be completed. Current medications taking metoprolol succinate 50 mg once a day, amlodipine 10 mg daily, Coumadin 5 mg daily, valsartan, Diovan 80 mg daily, Flomax 0.4 mg daily, insulin 15 units in the morning and 20 units at night, Lasix 40 mg daily, ferrous sulfate 325 mg daily, atorvastatin 80 mg daily, and acetaminophen 650 mg daily. REVIEW OF SYSTEMS: As per HPI. PHYSICAL EXAMINATION: VITAL SIGNS: Height of the patient 6 feet 1 inches, weight of the patient 190 pounds, and body mass index 28 kg/m2. Temperature afebrile, heart rate 113, and blood pressure 124/89. HEENT: PERRLA. Extraocular muscles intact. NECK: Supple. No carotid bruit or thyromegaly. CHEST: Clear to auscultation. HEART: S1 and S2 regular. ABDOMEN: Soft. EXTREMITIES: Clubbing and cyanosis negative. LABORATORY DATA: EKG shows atrial fibrillation. Telemetry shows AFib with rapid rate of 120. Blood workup; WBC 9.3, hemoglobin 8.8, hematocrit 28.1, and platelet count 208. Chemistry shows sodium 136, potassium 4.1, chloride 96, carbon dioxide 33, anion gap of 11, BUN 35, and creatinine 1.6. IMPRESSION: A 72-year-old male with past medical history significant for chronic atrial fibrillation, on Coumadin; hypertension; hyperlipidemia; diabetes; [id number] obesity; history of nonischemic cardiomyopathy; history of congestive heart failure secondary to systolic dysfunction; history of automatic implantable cardioverter-defibrillator placed six years ago, on Coumadin; history of recently diagnosed lung cancer; and also head and neck cancer as well as abscess of the neck recently drained. The patient admitted here with abscess of the neck, which is incision and drainage was done and now patient has atrial fibrillation with rapid ventricular rate. According to the patient six years ago, he had cardiac catheterization, nonischemic coronary artery disease. RECOMMENDATIONS: We will get echo to assess LV function, mitral and tricuspid valve regurgitation. We will discontinue Norvasc, discontinue losartan, continue Coumadin, and since the patient has subtherapeutic INR, INR today is , we will give the Lovenox as a bridge to cover this and we will start verapamil to control the heart rate as well as give the metoprolol changed to tartarate twice a day to control the heart rate. We will follow with you. Thank you Dr. Villarreal for providing us the opportunity in taking care of the patient, Nehemias Aguilera. Upon discharge, the patient is being followed by Dr. Benítez and Dr. Raya. Kaycee Moseley MD [facility] # [id number]
[2018-02-11] MEDS: Insulin Lispro (humaLOG) MEDIUM Coverage SC SCH ×4 (00:41→22:20)
[2018-02-11 07:02] LABS: INR 1.25; PROTHROMBIN TIME 14.4 SECONDS (9.4-12.5)
[2018-02-11 07:03] LABS: ALB/GLOB RATIO 0.9 (1.1-1.8); ALBUMIN 3.5 g/dL (3.0-4.8); CALCIUM 8.4 mg/dL (8.4-10.5)
[2018-02-11 07:12] LABS: BASO # 0.06 K/mm3 (0.0-2.0); BASO % 0.9 % (0.0-3.0); EOS # 0.4 (0.0-0.7); EOS % 6.5 % (1.5-5.0); GRAN # 4.06 (1.4-6.5); GRAN % 63.9 % (50.0-68.0); HEMOGLOBIN 9.2 g/dL (14.0-18.0); LYMPH # 1.1 (1.2-3.4); MEAN CELL VOLUME 60.6 fl (80.0-105.0); MEAN CORPUSCULAR HEMOGLOBIN 18.8 pg (25.0-35.0); MONO # 0.7 (0.1-0.6); MONO % 11.7 % (1.0-6.0); PLATELET COUNT 212 10^3/uL (120.0-450.0); RED CELL DISTRIBUTION WIDTH 19.7 % (11.5-14.5); WHITE BLOOD COUNT 6.4 10^3/uL (4.5-11.0)
[2018-02-11] MEDS: Insulin Detemir 100 units/ml Vial (Levemir) SC SCH ×2 (08:10→17:28)
[2018-02-11] MEDS: Metoprolol Succinate 50 mg XL Tab PO SCH (08:13)
[2018-02-11] MEDS: Sodium Chloride 0.9% 500 ML IV SCH ×2 (08:15→17:32)
[2018-02-11] MEDS: Meropenem IV 1 gm in NS 1 GM/50 ML BAG IVPB SCH ×2 (09:40→22:21)
[2018-02-11] MEDS: Enoxaparin 80 mg Syringe SC SCH (09:40)
[2018-02-11] MEDS ORDERED: Metoprolol Succinate 50 mg XL Tab PO SCH (10:00)
[2018-02-11] MEDS ORDERED: Potassium Chloride 40 mEq/30 ml LIQ UD PO ONE (10:16)
--- NOTE | 2018-02-11 11:06 | PN ---
DATE: 02/11/2018 SUBJECTIVE: Patient is in bed in no acute distress, nontoxic. No fevers and no chills. PHYSICAL EXAMINATION: VITAL SIGNS: Temperature is 98, blood pressure is 130/80, respiratory 20, heart rate of 88. HEENT: Unremarkable. NECK: Supple. LUNGS: Have decreased breath sounds. HEART: Normal S1, S2. ABDOMEN: Soft, nontender. LABORATORY EXAMINATION: Reveals a white count of 6.4, hemoglobin of 9. Chemistries reveals a BUN of 34, creatinine of 1.7 and serology is noted. Microbiology reveals the blood cultures are negative and aspirate and neck culture is negative at this time and review of orders reveals the patient to be on meropenem. ASSESSMENT AND PLAN: This is a 72-year-old male who was seen earlier today in [facility], bed 2, who is an ex-smoker who stopped smoking 4 years ago with a left neck mass, squamous cell carcinoma on radiation, invasive adenocarcinoma of the lung, cancer in 12/2017, history of congestive heart failure and defibrillator, atrial fibrillation, diabetes and hypertension. Admitted with right neck abscess with systemic inflammatory response syndrome of only 1/. Review of vitals reveals the patient has had no fevers and did have a heart rate of 106, it was up to 109; respiratory rate of 20 and white count has been 10, so he does not meet criteria for systemic inflammatory response syndrome, just the tachycardia and the cultures are reported to be negative from the neck mass currently at 24 hours. We will check on the final culture results and other workup is still pending on meropenem day #3. We will follow with you. Chalo Trivedi MD
--- NOTE | 2018-02-11 11:15 | CP.PCM.PN ---
<Abraham Urrutia - Last Filed: 02/11/18 11:30> Subjective - Date & Time of Evaluation Date of Evaluation: 02/11/18 Time of Evaluation: 08:35 - Subjective Subjective: Pt seen and examined this morning at bedside. Pt has no new complaints at this time. Pt denies chest pain, SOB, fevers or chills. Objective - Vital Signs/Intake and Output Vital Signs (last 24 hours): Temp Pulse Resp BP Pulse Ox 97.5 F L 95 H 20 140/90 97 02/11/18 06:00 02/11/18 09:40 02/11/18 06:00 02/11/18 09:40 02/11/18 06:00 Intake and Output: 02/11/18 02/11/18 06:59 18:59 Intake Total 840 Balance 840 - Medications Medications: Current Medications Atorvastatin Calcium (Lipitor) 80 mg PO HS [facility] Last Admin: 02/10/18 21:02 Dose: 80 mg Dextrose (Dextrose 50% Inj) 0 ml IV STAT PRN; Protocol PRN Reason: Hypoglycemia Protocol Enoxaparin Sodium (Lovenox) 80 mg SC DAILY [facility]; Protocol Stop: 02/11/18 23:59 Last Admin: 02/11/18 09:40 Dose: 80 mg Furosemide (Lasix) 40 mg PO DAILY [facility] Last Admin: 02/10/18 09:24 Dose: 40 mg Sodium Chloride (Sodium Chloride 0.9%) 500 mls @ 60 mls/hr IV .[id number] [facility] Last Admin: 02/11/18 08:15 Dose: 60 mls/hr Dextrose (Dextrose 5% In Water 1000 Ml) 1,000 mls @ 0 mls/hr IV .Q0M PRN; Protocol PRN Reason: Hypoglycemia Protocol Meropenem (Merrem Iv 1 Gm Premix) 1 gm in 50 mls @ 100 mls/hr IVPB Q12 [facility]; Protocol Stop: 02/18/18 22:31 Last Admin: 02/11/18 09:40 Dose: 100 mls/hr Insulin Detemir (Levemir) 10 unit SC BRKDIN [facility] Last Admin: 02/11/18 08:10 Dose: Not Given Insulin Human Lispro (Humalog Med) 0 units SC ACHS [facility]; Protocol Last Admin: 02/11/18 08:10 Dose: Not Given Losartan Potassium (Cozaar) 25 mg PO DAILY [facility] Last Admin: 02/11/18 09:40 Dose: 25 mg Metoprolol Succinate (Toprol Xl) 50 mg PO BRK [facility] Last Admin: 02/11/18 08:13 Dose: 50 mg Tamsulosin HCl (Flomax) 0.4 mg PO DAILY [facility] Last Admin: 02/11/18 09:47 Dose: 0.4 mg Verapamil HCl (Calan Tab) 40 mg PO TID [facility] Last Admin: 02/11/18 09:40 Dose: 40 mg Warfarin Sodium (Coumadin) 5 mg PO 1800 [facility]; Protocol - Labs Labs: 02/11/18 06:00 02/11/18 06:00 PT 14.4 SECONDS (9.4-12.5) H 02/11/18 06:00 INR 1.25 02/11/18 06:00 APTT 28.1 Seconds (25.1-36.5) 02/09/18 11:35 - Constitutional Appears: No Acute Distress - Head Exam Additional comments: right side of face underear lobe bandaged, bandage is wet and a small amount of blood can be seen - Eye Exam Eye Exam: EOMI - ENT Exam ENT Exam: Mucous Membranes Moist - Neck Exam Neck Exam: Full ROM - Respiratory Exam Respiratory Exam: Clear to Ausculation Bilateral, NORMAL BREATHING PATTERN. absent: Accessory Muscle Use - Cardiovascular Exam Cardiovascular Exam: Irregular Rhythm, +S1, +S2 - GI/Abdominal Exam GI & Abdominal Exam: Soft, Normal Bowel Sounds. absent: Tenderness - Extremities Exam Extremities Exam: Full ROM. absent: Pedal Edema, Tenderness - Neurological Exam Neurological Exam: Alert, Awake, Oriented x3 - Psychiatric Exam Psychiatric exam: Normal Affect, Normal Mood - Skin Skin Exam: Dry, Normal Color, Warm Assessment and Plan - Assessment and Plan (Free Text) Assessment: Pt is a 72yo male with a PMH of CHF atrial fibrillation, diabetes type II, HTN, left neck mass Squamous cell carcinoma, non small cell lung cancer of the lung who presents to the ED after being refereed by his radiation oncologist, Dr Grijalva for a rapidly enlarging mass on the right side of his cheek below his ear lobe. Plan: Abscess Right side of head/neck - hx of left neck mass Squamous cell carcinoma - Surgery, Dr Delcid abscess I+D yesterday, cultures NGTD - Radiation onc, Dr Grijalva, will check pt again on Tuesday and determine when to resume his radiation - Heme/onc, Dr Lucio - ID, Everardo rec Meropenem NORRIS - Cr 1.7 - BUN 34 - NS@60 Hypokalemia - K 3.4 - replete PRN Atrial Fibrillation - coumadin 5 - verapamil 40 TID - cardio consulted, Dr Moseley CHF - toprol 50 daily - losartan 25 - ECHO Diabetes type II - levemir 10 units - lispro- med ACHS HLD - lipitor 80 HTN - amlodipine 10 Non small cell lung cancer of the lung - continue to follow with Dr Lucio, Dr Grijalva, continue current chemotherapy and radiation BPH - flomax Ppx - lovenox - Diabetic diet Pt seen, examined, assessment and plan discussed with Dr Deanne Urrutia PGY1, Internal Medicine Resident <Deanne Villarreal R - Last Filed: 02/12/18 16:57> Objective - Vital Signs/Intake and Output Vital Signs (last 24 hours): Temp Pulse Resp BP Pulse Ox 97.9 F 95 H 20 125/75 97 02/12/18 06:00 02/12/18 13:24 02/12/18 06:00 02/12/18 13:24 02/12/18 06:00 Intake and Output: 02/12/18 02/12/18 06:59 18:59 Intake Total 1040 Output Total 1550 Balance -510 - Medications Medications: Current Medications Atorvastatin Calcium (Lipitor) 80 mg PO HS [facility] Last Admin: 02/11/18 22:21 Dose: 80 mg Dextrose (Dextrose 50% Inj) 0 ml IV STAT PRN; Protocol PRN Reason: Hypoglycemia Protocol Furosemide (Lasix) 40 mg PO DAILY [facility] Last Admin: 02/10/18 09:24 Dose: 40 mg Dextrose (Dextrose 5% In Water 1000 Ml) 1,000 mls @ 0 mls/hr IV .Q0M PRN; Protocol PRN Reason: Hypoglycemia Protocol Meropenem (Merrem Iv 1 Gm Premix) 1 gm in 50 mls @ 100 mls/hr IVPB Q12 [facility]; Protocol Stop: 02/18/18 22:31 Last Admin: 02/12/18 10:08 Dose: 100 mls/hr Sodium Chloride (Sodium Chloride 0.9%) 1,000 mls @ 60 mls/hr IV .[id number] [facility] Last Admin: 02/12/18 02:10 Dose: 60 mls/hr Insulin Detemir (Levemir) 8 unit SC BRKDIN [facility] Last Admin: 02/12/18 16:21 Dose: 8 units Insulin Human Lispro (Humalog Med) 0 units SC ACHS [facility]; Protocol Last Admin: 02/12/18 16:16 Dose: Not Given Losartan Potassium (Cozaar) 25 mg PO DAILY [facility] Last Admin: 02/12/18 10:09 Dose: 25 mg Metoprolol Succinate (Toprol Xl) 50 mg PO BRK [facility] Last Admin: 02/12/18 08:01 Dose: 50 mg Tamsulosin HCl (Flomax) 0.4 mg PO DAILY [facility] Last Admin: 02/12/18 10:09 Dose: 0.4 mg Verapamil HCl (Calan Tab) 40 mg PO TID [facility] Last Admin: 02/12/18 13:24 Dose: 40 mg Warfarin Sodium (Coumadin) 10 mg PO 1800 [facility]; Protocol - Labs Labs: 02/12/18 05:30 02/12/18 05:30 PT 14.3 SECONDS (9.4-12.5) H 02/12/18 05:30 INR 1.24 02/12/18 05:30 APTT 28.1 Seconds (25.1-36.5) 02/09/18 11:35 Attending/Attestation - Attestation I have personally seen and examined this patient.: Yes I have fully participated in the care of the patient.: Yes I have reviewed all pertinent clinical information, including history, physical exam and plan: Yes Notes (Text): Patient seen and examined by me with resident at 9AM on 02/11/18. Case including HPI, physical exam, and assessment and plan discussed with resident. Agree with above with following additions/corrections. 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 Patient states he is doing ok. Still with some soreness at right facial wound. Patient states there was some bleeding from the area earlier and dressing was changed. No ear pain. No fevers or chills. No chest pain or shortness of breath. No palpitations. No headaches or dizziness. No nausea, vomiting, or abdominal pain. No dysuria. Physical exam: General: Awake and alert lying in bed in no acute distress HEENT: Normocephalic, atraumatic. Extraocular muscles intact, pupils equal and reactive, no scleral icterus. Oropharynx is pink and moist. No pharyngeal erythema or exudate appreciated. Large mass left neck. Mass on right decreased in size; dressing with blood; tender to palpitation. Hearing grossly decreased. Cardiovascular: Irregularly irregular rhythm. No murmurs, rubs, or gallops appre ciated Pulmonary: Normal respiratory effort. No rhonchi, rales, or wheezing appreciated Gastrointestinal: Soft. Nondistended. Nontender. Positive bowel sounds all 4 quadrants. No guarding. Musculoskeletal: Moves all extremities. No calf tenderness. No edema appreciated. No CVA tenderness. Central nervous system: AAOx 3, CN 2-12 grossly intact Dermatologic: Skin warm and dry. 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 1. Abscess vs necrotic lymph node. S/P bedside draining of pus, cavity irrigation, probing to break up loculations, and packing with guaze 02/09/18 with surgical team. Cultures with no growth for 24 hours.ID following, recommendations appreciated. Continue Merrem. Patient afebrile. Maxillofacial CT per radiologist showed large 6.5cm mass on left side of neck, this surrounds and obliterates the left sternocleidomastoid muscle and left jugular vein, consistent with known history of squamous cell head and neck cancer; on right side, there is a 3 x 3.8 cm fluid collection containing pockets of air, calcifications are seen within the fluid matrix, fluid measures 13 Housenfielf units, probably represents an abscess or necrotic lymph node. 2. Dysphagia. Per patient, he is still able to eat. Per speech and swallow continue regular diet with thin liquids. Small bites recommended. Aspiration precautions. 3. NORRIS. Lasix was held but patient was given a dose yesterday morning. Creatinine uptrending. Continue low dose IV fluids. Follow up repeat labs in AM. 4. Atrial fibrillation with RVR. Cardiology following, recommendations appreci ated. Continue Toprol XL and verapamil. Heart rate improved. INR subtherapeutic. Continue therapeutic lovenox renally dosed per cardio. Coumadin 7.5mg x 1 dose today. Follow up repeat labs in AM. 5. Chronic systolic CHF. Compensated. Home Lasix held for now secondary to NORRIS and dehydration. Continue Toprol XL and cozaar 6. DM2. Continue insulin sliding scale. Continue Levemir. Continue to monitor accuchecks. 7. Essential hypertension. Continue Toprol XL, Cozaar, and Verapamil. 8. Hyperlipidemia. Continue home Lipitor 9. BPH. Continue home Flomax 10. Anemia. Chronic. On feosol at home. At baseline. Continue to monitor H&H. 11. Head and neck cancer/nonsmall cell lung cancer. Hem/onc consulted. On chemo and radiation outpatient. 12. DVT prophylaxis. Lovenox 13. Patient is a full code Case was discussed in detail with the patient regarding current diagnosis and treatment plan. All questions answered.
--- NOTE | 2018-02-11 16:35 | CARD ---
APPROVED REPORT Date of service: 02/11/2018 EXAM: Two-dimensional and M-mode echocardiogram with Doppler and color Doppler. INDICATION AFIB, CMP 2D DIMENSIONS Left Atrium (2D)4.3 (1.6-4.0cm)IVSd1.4 (0.7-1.1cm) LVDd3.8 (3.9-5.9cm)LVOT Diameter2.2 (1.8-2.4cm) PWd1.6 (0.7-1.1cm)LVDs3.0 (2.5-4.0cm) FS (%) 20.6 %LVEF (%)42.7 (>50%) M-Mode DIMENSIONS Aortic Root2.70 (2.2-3.7cm)Aortic Cusp Exc.1.00 (1.5-2.0cm) Aortic Valve AoV Peak Svlozvgf551.0cm/sAoV VTI41.4cmAO Peak GR.22mmHg LVOT Peak Vvlatuvq40.4cm/sLVOT VTI12.00cmAO Mean GR.10mmHg JOHNATHON (VMAX)1.67yx0MRC (VTI)1.10cm2 Mitral Valve MV E Zhjrzkwj307.0cm/sMV E Peak Gr.98mmHg TDI Lateral E' Peak V8.03cm/sMedial E' Peak V6.78cm/sE/Lateral E'14.7 E/Medial E'17.4 Tricuspid Valve TR Peak Njikffkg101tt/sRAP URDTFESG69teNoEP Peak Gr.41mmHg [id number] LEFT VENTRICLE The left ventricle is normal size. There is mild to moderate concentric left ventricular hypertrophy. The systolic function is moderately impaired.EF-30-35% There is global hypokinesis of the left ventricle. The left ventricular diastolic function could not be assessed b/c pt. was in a fib. No left ventricle thrombus noted on this study. There is no ventricular septal defect visualized. There is no left ventricular aneurysm. There is no mass noted in the left ventricle. RIGHT VENTRICLE The right ventricle is mildly dilated. There is normal right ventricular wall thickness. Systolic function of RV is moderately reduced. ATRIA The left atrium is mildly dilated. The right atrium is mildly dilated. The interatrial septum is intact with no evidence for an atrial septal defect. AORTIC VALVE The aortic valve is calcified and displays decreased opening. There is trace aortic regurgitation. There is moderate valvular aortic stenosis. There is no aortic valvular vegetation. MITRAL VALVE The mitral valve is thickened but opens well. Mitral regurgitation is mild to moderate. There is no mitral valve stenosis. There is no evidence of mitral valve prolapse. TRICUSPID VALVE The tricuspid valve leaflets are thickened , but open well. There is mild to moderate tricuspid regurgitation.RVSP-51 mmof Hg. There is mild to moderate pulmonary hypertension. There is no tricuspid valve stenosis. There is no tricuspid valve prolapse or vegetation. PULMONIC VALVE The pulmonary valve is normal in structure. There is trace pulmonic valvular regurgitation. There is no pulmonic valvular stenosis. GREAT VESSELS The aortic root is normal in size. The ascending aorta is normal in size. The pulmonary artery is normal. The IVC is dilated. PERICARDIAL EFFUSION There is no pleural effusion. There is no pericardial effusion. <Conclusion> The left ventricle is normal size. There is mild to moderate concentric left ventricular hypertrophy. The systolic function is moderately impaired.EF-30-35% The right ventricle is mildly dilated. There is trace aortic regurgitation. Mitral regurgitation is mild to moderate. There is mild to moderate tricuspid regurgitation.RVSP-51 mmof Hg. There is mild to moderate pulmonary hypertension. There is no pericardial effusion. The IVC is dilated. PPM /AICD lead noted in RA/RV. No thrombus noted.
[2018-02-12] MEDS: Sodium Chloride 0.9% 1,000 ML IV SCH ×2 (02:10→18:12)
[2018-02-12 07:01] LABS: BASO # 0.08 K/mm3 (0.0-2.0); BASO % 1.6 % (0.0-3.0); EOS # 0.4 (0.0-0.7); EOS % 8.9 % (1.5-5.0); GRAN # 2.76 (1.4-6.5); HEMOGLOBIN 8.5 g/dL (14.0-18.0); LYMPH % 20.9 % (22.0-35.0); MEAN CELL VOLUME 60.8 fl (80.0-105.0); MEAN CORPUSCULAR HEMOGLOBIN 18.9 pg (25.0-35.0); MEAN CORPUSCULAR HGB CONC 31.1 g/dl (31.0-37.0); MONO # 0.6 (0.1-0.6); MONO % 12.6 % (1.0-6.0); PLATELET COUNT 207 10^3/uL (120.0-450.0); RBC 4.49 10^6/uL (3.5-6.1); RED CELL DISTRIBUTION WIDTH 19.7 % (11.5-14.5); WHITE BLOOD COUNT 4.9 10^3/uL (4.5-11.0)
[2018-02-12 07:19] LABS: INR 1.24; PROTHROMBIN TIME 14.3 SECONDS (9.4-12.5)
[2018-02-12 07:38] LABS: ALB/GLOB RATIO 0.9 (1.1-1.8); ALBUMIN 3.4 g/dL (3.0-4.8); ALT/SGPT 23 U/L (7-56); AST/SGOT 31 U/L (17-59); BLOOD UREA NITROGEN 28 mg/dL (7-21); CALCIUM 8.4 mg/dL (8.4-10.5); GFR NON-AFRICAN AMERICAN 50
[2018-02-12] MEDS: Insulin Lispro (humaLOG) MEDIUM Coverage SC SCH ×4 (07:59→22:08)
[2018-02-12] MEDS: Insulin Detemir 100 units/ml Vial (Levemir) SC SCH ×2 (07:59→16:21)
[2018-02-12] MEDS: Metoprolol Succinate 50 mg XL Tab PO SCH (08:01)
[2018-02-12] MEDS: Meropenem IV 1 gm in NS 1 GM/50 ML BAG IVPB SCH ×2 (10:08→22:09)
--- NOTE | 2018-02-12 11:57 | CP.PCM.PN ---
<Abraham Urrutia - Last Filed: 02/12/18 12:14> Subjective - Date & Time of Evaluation Date of Evaluation: 02/12/18 Time of Evaluation: 08:00 - Subjective Subjective: Pt seen and examined this morning. Pt reports mild tenderness to the right side of his face/ cheek. Denies chest pain, SOB, fever or chills. Objective - Vital Signs/Intake and Output Vital Signs (last 24 hours): Temp Pulse Resp BP Pulse Ox 97.9 F 111 H 20 127/92 H 97 02/12/18 06:00 02/12/18 10:09 02/12/18 06:00 02/12/18 10:09 02/12/18 06:00 Intake and Output: 02/12/18 02/12/18 06:59 18:59 Intake Total 1040 Output Total 1550 Balance -510 - Medications Medications: Current Medications Atorvastatin Calcium (Lipitor) 80 mg PO HS [facility] Last Admin: 02/11/18 22:21 Dose: 80 mg Dextrose (Dextrose 50% Inj) 0 ml IV STAT PRN; Protocol PRN Reason: Hypoglycemia Protocol Furosemide (Lasix) 40 mg PO DAILY [facility] Last Admin: 02/10/18 09:24 Dose: 40 mg Dextrose (Dextrose 5% In Water 1000 Ml) 1,000 mls @ 0 mls/hr IV .Q0M PRN; Protocol PRN Reason: Hypoglycemia Protocol Meropenem (Merrem Iv 1 Gm Premix) 1 gm in 50 mls @ 100 mls/hr IVPB Q12 [facility]; Protocol Stop: 02/18/18 22:31 Last Admin: 02/12/18 10:08 Dose: 100 mls/hr Sodium Chloride (Sodium Chloride 0.9%) 1,000 mls @ 60 mls/hr IV .[id number] [facility] Last Admin: 02/12/18 02:10 Dose: 60 mls/hr Insulin Detemir (Levemir) 8 unit SC BRKDIN [facility] Insulin Human Lispro (Humalog Med) 0 units SC ACHS [facility]; Protocol Losartan Potassium (Cozaar) 25 mg PO DAILY [facility] Last Admin: 02/12/18 10:09 Dose: 25 mg Metoprolol Succinate (Toprol Xl) 50 mg PO BRK [facility] Last Admin: 02/12/18 08:01 Dose: 50 mg Tamsulosin HCl (Flomax) 0.4 mg PO DAILY [facility] Last Admin: 02/12/18 10:09 Dose: 0.4 mg Verapamil HCl (Calan Tab) 40 mg PO TID [facility] Last Admin: 02/12/18 10:08 Dose: 40 mg Warfarin Sodium (Coumadin) 10 mg PO 1800 [facility]; Protocol - Labs Labs: 02/12/18 05:30 02/12/18 05:30 PT 14.3 SECONDS (9.4-12.5) H 02/12/18 05:30 INR 1.24 02/12/18 05:30 APTT 28.1 Seconds (25.1-36.5) 02/09/18 11:35 - Constitutional Appears: No Acute Distress - Head Exam Additional comments: bandage in place on right side of pt cheek, under earlobe - Eye Exam Eye Exam: EOMI - ENT Exam ENT Exam: Mucous Membranes Moist - Respiratory Exam Respiratory Exam: Clear to Ausculation Bilateral, NORMAL BREATHING PATTERN. absent: Accessory Muscle Use, Wheezes, Respiratory Distress - Cardiovascular Exam Cardiovascular Exam: +S1, +S2. absent: Diastolic murmur, Murmur - GI/Abdominal Exam GI & Abdominal Exam: Soft, Normal Bowel Sounds - Extremities Exam Extremities Exam: Full ROM. absent: Pedal Edema - Back Exam Back Exam: absent: tenderness - Neurological Exam Neurological Exam: Alert, Awake, Oriented x3 - Psychiatric Exam Psychiatric exam: Normal Affect, Normal Mood - Skin Skin Exam: Dry, Intact, Warm Assessment and Plan - Assessment and Plan (Free Text) Assessment: Pt is a 72yo male with a PMH of CHF atrial fibrillation, diabetes type II, HTN, left neck mass squamous cell carcinoma, non small cell lung cancer of the lung who presents to the ED after being refereed by his radiation oncologist, Dr Grijalva for a rapidly enlarging mass on the right side of his cheek below his ear lobe. Plan: Abscess Right side of head/neck - Surgery, Dr Delcid abscess I+D yesterday, cultures NGTD - Heme/onc, Dr Lucio - ID, Everardo rec Meropenem Non small cell lung cancer of the lung - continue to follow with Dr Lucio, Dr Grijalva, continue current chemotherapy and radiation - Radiation onc, Dr Grijalva, will check pt again on Tuesday Atrial Fibrillation - coumadin 5 - verapamil 40 TID - DC tele - cardio consulted, Dr Moseley NORRIS - Cr 1.4, improving - BUN 28, improving CHF - toprol 50 daily - losartan 25 - ECHO EF 30-35% Diabetes type II - levemir 10 units - lispro med ACHS HTN - amlodipine 10 HLD - lipitor 80 BPH - flomax Ppx - lovenox - Diabetic diet Pt seen, examined, assessment and plan discussed with Dr Jerad Urrutia PGY1, Internal Medicine Residents <Valdez Mars - Last Filed: 02/12/18 14:13> Objective - Vital Signs/Intake and Output Vital Signs (last 24 hours): Temp Pulse Resp BP Pulse Ox 97.9 F 95 H 20 125/75 97 02/12/18 06:00 02/12/18 13:24 02/12/18 06:00 02/12/18 13:24 02/12/18 06:00 Intake and Output: 02/12/18 02/12/18 06:59 18:59 Intake Total 1040 Output Total 1550 Balance -510 - Medications Medications: Current Medications Atorvastatin Calcium (Lipitor) 80 mg PO HS [facility] Last Admin: 02/11/18 22:21 Dose: 80 mg Dextrose (Dextrose 50% Inj) 0 ml IV STAT PRN; Protocol PRN Reason: Hypoglycemia Protocol Furosemide (Lasix) 40 mg PO DAILY [facility] Last Admin: 02/10/18 09:24 Dose: 40 mg Dextrose (Dextrose 5% In Water 1000 Ml) 1,000 mls @ 0 mls/hr IV .Q0M PRN; Protocol PRN Reason: Hypoglycemia Protocol Meropenem (Merrem Iv 1 Gm Premix) 1 gm in 50 mls @ 100 mls/hr IVPB Q12 [facility]; Protocol Stop: 02/18/18 22:31 Last Admin: 02/12/18 10:08 Dose: 100 mls/hr Sodium Chloride (Sodium Chloride 0.9%) 1,000 mls @ 60 mls/hr IV .[id number] [facility] Last Admin: 02/12/18 02:10 Dose: 60 mls/hr Insulin Detemir (Levemir) 8 unit SC BRKDIN [facility] Insulin Human Lispro (Humalog Med) 0 units SC ACHS [facility]; Protocol Last Admin: 02/12/18 12:06 Dose: Not Given Losartan Potassium (Cozaar) 25 mg PO DAILY [facility] Last Admin: 02/12/18 10:09 Dose: 25 mg Metoprolol Succinate (Toprol Xl) 50 mg PO BRK [facility] Last Admin: 02/12/18 08:01 Dose: 50 mg Tamsulosin HCl (Flomax) 0.4 mg PO DAILY [facility] Last Admin: 02/12/18 10:09 Dose: 0.4 mg Verapamil HCl (Calan Tab) 40 mg PO TID [facility] Last Admin: 02/12/18 13:24 Dose: 40 mg Warfarin Sodium (Coumadin) 10 mg PO 1800 [facility]; Protocol - Labs Labs: 02/12/18 05:30 02/12/18 05:30 PT 14.3 SECONDS (9.4-12.5) H 02/12/18 05:30 INR 1.24 02/12/18 05:30 APTT 28.1 Seconds (25.1-36.5) 02/09/18 11:35 Attending/Attestation - Attestation I have personally seen and examined this patient.: Yes I have fully participated in the care of the patient.: Yes I have reviewed all pertinent clinical information, including history, physical exam and plan: Yes Notes (Text): 02/12/18 14:03 Attending note; Patient seen and examined with resident. Patient is alert and awake. Complaining of right-sided/ neck pain. Status post drainage of the right neck abscess. Dressing in place. No bleeding noted. Minimal oozing present. Denies any fevers, chills. Tolerating diet well. Patient is a 72 year old male with a PMH of CHF, atrial fibrillation, diabetes type II, HTN, left neck mass squamous cell carcinoma, non small cell lung cancer of the lung was sent by radiation oncologist for rapidly growing mass on the right side of the neck. 1. Right-sided neck mass; status post incision and drainage. Currently dressing intact. Minimal oozing present. Blood culture is negative. Wound culture is negative so far. HIV is negative. RPR is negative. Currently on IV meropenem. we will follow up with surgery for further plan. 2. History of A. fib; continue metoprolol and verapamil. Cardiology evaluation appreciated. 3. subtherapeutic INR. Continue Lovenox bridging therapy. Coumadin dosage increased to 10 mg today. Follow up INR tomorrow. 4. Hypertension; continue Cozaar, Lasix, metoprolol and verapamil. 5. Diabetes ; continue Levemir and insulin sliding scale . 6. Speech and swallow evaluation appreciated. 7. Anemia; no active bleeding noted. Monitor closely. Patient will get radiation therapy tomorrow. Discharge home tomorrow after radiation. Upon discharge the patient will follow up with PMD Dr. Fajardo and oncology Dr. Lucio. Patient will continue radiation with Dr. Grijalva as outpatient.
--- NOTE | 2018-02-13 00:12 | PN ---
DATE: 02/12/2018 SUBJECTIVE: The patient seen in bed, in no acute distress, nontoxic. PHYSICAL EXAMINATION: VITAL SIGNS: Temperature is 98, blood pressure is 140/90, respiratory rate of 20, heart rate of 93. HEENT: Unremarkable. NECK: Supple. LUNGS: Have decreased breath sounds. HEART: Normal, S1, S2. ABDOMEN: Soft. LABORATORY DATA: Examination reveals a white count of 4.9, hemoglobin of 8. Chemistries are noted. Serology is reviewed. Microbiology is noted. ASSESSMENT AND PLAN: A 72-year-old male who was seen earlier today and is an ex-smoker with left neck mass, squamous cell carcinoma on radiation, invasive carcinoma of the lung cancer in 12/2017, history of congestive heart failure, on defibrillator and atrial fibrillation, diabetes, hypertension and maybe the neck abscess with systemic inflammatory response syndrome, actually only one of four and cultures negative. Bartonella is pending. Currently on meropenem, maybe able to switch to p.o. antibiotics. Chalo Trivedi MD
--- NOTE | 2018-02-13 02:07 | CP.PCM.PN ---
Subjective - Date & Time of Evaluation Date of Evaluation: 02/10/18 Time of Evaluation: 18:00 - Subjective Subjective: Feeling better Objective - Vital Signs/Intake and Output Vital Signs (last 24 hours): Temp Pulse Resp BP Pulse Ox 98.0 F 93 H 20 140/98 H 95 02/12/18 17:52 02/12/18 17:52 02/12/18 17:52 02/12/18 17:52 02/12/18 17:52 Intake and Output: 02/12/18 02/13/18 18:59 06:59 Intake Total 1780 Output Total 1225 Balance 555 - Medications Medications: Current Medications Atorvastatin Calcium (Lipitor) 80 mg PO HS [facility] Last Admin: 02/12/18 22:09 Dose: 80 mg Dextrose (Dextrose 50% Inj) 0 ml IV STAT PRN; Protocol PRN Reason: Hypoglycemia Protocol Furosemide (Lasix) 40 mg PO DAILY [facility] Last Admin: 02/10/18 09:24 Dose: 40 mg Dextrose (Dextrose 5% In Water 1000 Ml) 1,000 mls @ 0 mls/hr IV .Q0M PRN; Protocol PRN Reason: Hypoglycemia Protocol Meropenem (Merrem Iv 1 Gm Premix) 1 gm in 50 mls @ 100 mls/hr IVPB Q12 DAVID; Protocol Stop: 02/18/18 22:31 Last Admin: 02/12/18 22:09 Dose: 100 mls/hr Sodium Chloride (Sodium Chloride 0.9%) 1,000 mls @ 60 mls/hr IV .[id number] [facility] Last Admin: 02/12/18 18:12 Dose: 60 mls/hr Insulin Detemir (Levemir) 8 unit SC BRKDIN [facility] Last Admin: 02/12/18 16:21 Dose: 8 units Insulin Human Lispro (Humalog Med) 0 units SC ACHS [facility]; Protocol Last Admin: 02/12/18 22:08 Dose: Not Given Losartan Potassium (Cozaar) 25 mg PO DAILY [facility] Last Admin: 02/12/18 10:09 Dose: 25 mg Metoprolol Succinate (Toprol Xl) 50 mg PO BRK [facility] Last Admin: 02/12/18 08:01 Dose: 50 mg Tamsulosin HCl (Flomax) 0.4 mg PO DAILY [facility] Last Admin: 02/12/18 10:09 Dose: 0.4 mg Verapamil HCl (Calan Tab) 40 mg PO TID [facility]ID Last Admin: 02/12/18 17:30 Dose: 40 mg Warfarin Sodium (Coumadin) 10 mg PO 1800 DAVID; Protocol Last Admin: 02/12/18 17:30 Dose: 10 mg - Labs Labs: 02/12/18 05:30 02/12/18 05:30 PT 14.3 SECONDS (9.4-12.5) H 02/12/18 05:30 INR 1.24 02/12/18 05:30 APTT 28.1 Seconds (25.1-36.5) 02/09/18 11:35 - Head Exam Head Exam: ATRAUMATIC - Eye Exam Eye Exam: Normal appearance - ENT Exam ENT Exam: Mucous Membranes Dry - Respiratory Exam Respiratory Exam: NORMAL BREATHING PATTERN - Cardiovascular Exam Cardiovascular Exam: +S1, +S2 - GI/Abdominal Exam GI & Abdominal Exam: Normal Bowel Sounds Assessment and Plan (1) Anemia Assessment & Plan: chronic disease chemoradiation Status: Acute (2) Head and neck cancer Assessment & Plan: outpatient chemoradiation Status: Acute (3) Non-small cell lung cancer Assessment & Plan: outpatient treatment Status: Acute
[2018-02-13 06:47] LABS: INR 1.31; PROTHROMBIN TIME 15.2 SECONDS (9.4-12.5)
[2018-02-13 07:06] LABS: BASO # 0.05 K/mm3 (0.0-2.0); BASO % 1.2 % (0.0-3.0); EOS # 0.4 (0.0-0.7); EOS % 9.2 % (1.5-5.0); GRAN # 2.29 (1.4-6.5); GRAN % 55.3 % (50.0-68.0); HEMOGLOBIN 9.1 g/dL (14.0-18.0); LYMPH # 0.8 (1.2-3.4); LYMPH % 19.1 % (22.0-35.0); MEAN CELL VOLUME 61.2 fl (80.0-105.0); MEAN CORPUSCULAR HGB CONC 31.1 g/dl (31.0-37.0); MONO # 0.6 (0.1-0.6); MONO % 15.2 % (1.0-6.0); PLATELET COUNT 221 10^3/uL (120.0-450.0); RBC 4.79 10^6/uL (3.5-6.1); RED CELL DISTRIBUTION WIDTH 19.8 % (11.5-14.5); WHITE BLOOD COUNT 4.1 10^3/uL (4.5-11.0)
[2018-02-13 08:10] LABS: ALB/GLOB RATIO 0.8 (1.1-1.8); ALBUMIN 3.7 g/dL (3.0-4.8); ALT/SGPT 22 U/L (7-56); AST/SGOT 31 U/L (17-59); BLOOD UREA NITROGEN 24 mg/dL (7-21); CALCIUM 8.7 mg/dL (8.4-10.5); GFR NON-AFRICAN AMERICAN 54
[2018-02-13 08:13] VITALS: RESP 19; O2SAT 100
[2018-02-13] MEDS: Insulin Lispro (humaLOG) MEDIUM Coverage SC SCH ×3 (09:53→17:10)
[2018-02-13] MEDS: Insulin Detemir 100 units/ml Vial (Levemir) SC SCH ×2 (09:59→17:10)
[2018-02-13] MEDS: Meropenem IV 1 gm in NS 1 GM/50 ML BAG IVPB SCH (10:01)
[2018-02-13] MEDS: Metoprolol Succinate 50 mg XL Tab PO SCH (10:01)
--- NOTE | 2018-02-13 11:29 | CP.PCM.PN ---
<Amber Braden - Last Filed: 02/13/18 13:39> Subjective - Date & Time of Evaluation Date of Evaluation: 02/13/18 Time of Evaluation: 11:27 - Subjective Subjective: ID progress note PGY-[address] Mcgee tenderness on R jaw, but much improved compared to last week. Denies f/c, dysphagia, cough, choking, CP, SOB, N/V/D/C, dysuria Objective - Vital Signs/Intake and Output Vital Signs (last 24 hours): Temp Pulse Resp BP Pulse Ox 98.3 F 97 H 19 138/97 H 100 02/13/18 08:12 02/13/18 10:01 02/13/18 08:12 02/13/18 10:01 02/13/18 08:12 Intake and Output: 02/13/18 02/13/18 06:59 18:59 Intake Total 1575 Output Total 875 Balance 700 - Medications Medications: Current Medications Atorvastatin Calcium (Lipitor) 80 mg PO HS [facility] Last Admin: 02/12/18 22:09 Dose: 80 mg Dextrose (Dextrose 50% Inj) 0 ml IV STAT PRN; Protocol PRN Reason: Hypoglycemia Protocol Furosemide (Lasix) 40 mg PO DAILY [facility] Last Admin: 02/10/18 09:24 Dose: 40 mg Dextrose (Dextrose 5% In Water 1000 Ml) 1,000 mls @ 0 mls/hr IV .Q0M PRN; Protocol PRN Reason: Hypoglycemia Protocol Meropenem (Merrem Iv 1 Gm Premix) 1 gm in 50 mls @ 100 mls/hr IVPB Q12 DAVID; Protocol Stop: 02/18/18 22:31 Last Admin: 02/13/18 10:01 Dose: 100 mls/hr Sodium Chloride (Sodium Chloride 0.9%) 1,000 mls @ 60 mls/hr IV .[id number] [facility] Last Admin: 02/12/18 18:12 Dose: 60 mls/hr Insulin Detemir (Levemir) 8 unit SC BRKDIN [facility] Last Admin: 02/13/18 09:59 Dose: 8 units Insulin Human Lispro (Humalog Med) 0 units SC ACHS [facility]; Protocol Last Admin: 02/13/18 09:53 Dose: Not Given Losartan Potassium (Cozaar) 25 mg PO DAILY [facility] Last Admin: 02/13/18 10:00 Dose: 25 mg Metoprolol Succinate (Toprol Xl) 50 mg PO BRK [facility] Last Admin: 02/13/18 10:01 Dose: 50 mg Tamsulosin HCl (Flomax) 0.4 mg PO DAILY [facility] Last Admin: 02/13/18 10:01 Dose: 0.4 mg Verapamil HCl (Calan Tab) 40 mg PO TID [facility] Last Admin: 02/13/18 10:00 Dose: 40 mg Warfarin Sodium (Coumadin) 10 mg PO 1800 DAVID; Protocol Last Admin: 02/12/18 17:30 Dose: 10 mg - Labs Labs: 02/13/18 06:00 02/13/18 06:00 PT 15.2 SECONDS (9.4-12.5) H 02/13/18 06:00 INR 1.31 02/13/18 06:00 APTT 28.1 Seconds (25.1-36.5) 02/09/18 11:35 - Constitutional Appears: No Acute Distress - Head Exam Head Exam: ATRAUMATIC, NORMAL INSPECTION, NORMOCEPHALIC Additional comments: R jaw dressing d/c/i - Eye Exam Eye Exam: EOMI, Normal appearance, PERRL. absent: Scleral icterus Pupil Exam: NORMAL ACCOMODATION - ENT Exam ENT Exam: Mucous Membranes Moist - Neck Exam Additional comments: dressing d/c/i - Respiratory Exam Respiratory Exam: Clear to Ausculation Bilateral. absent: Rales, Rhonchi, Wheezes - Cardiovascular Exam Cardiovascular Exam: REGULAR RHYTHM, +S1, +S2. absent: Murmur - GI/Abdominal Exam GI & Abdominal Exam: Soft, Normal Bowel Sounds. absent: Guarding, Rigid, Tenderness - Extremities Exam Extremities Exam: Normal Capillary Refill. 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 Now 1.3 PMH of left neck mass Squamous cell carcinoma on radiation (week #4/7), invasive adenocarcioma lung cancer (Dx 12/2017) former smoker quit 4 years IDDM (A1C 8.3) P: - D/C iv antibiotics: Merem 1gq12 (day 4) s/p vanco (total 2 doses) and zosyn x 1 in ED - PO augmentin for next 3-5 days - follow on Bartonella DNA/AB Imaging/Lab - Maxillofacial CT with contrast (02/09/18): large 6.5 cm mass on L neck. R 3 x 3.8cm fluid collection with air pockets with calcification. Likely abscess or necrotic lymph node (13 [place]) - B Cx: neg x 3d - W Cx: no growth - Bartenella: pending - echo: EF 30-35%, RVSP 50. Mild to mod tricuspid, mitral regurg - HIV, RPR: neg - W Cx: Many GN rods, few GP cocci in cluster/GP bacilli s/r/d/w Dr Mcgee <Jai Mcgee S - Last Filed: 02/13/18 17:05> Objective - Vital Signs/Intake and Output Vital Signs (last 24 hours): Temp Pulse Resp BP Pulse Ox 97.8 F 97 H 19 147/93 H 100 02/13/18 16:54 02/13/18 16:54 02/13/18 16:54 02/13/18 16:54 02/13/18 16:54 Intake and Output: 02/13/18 02/13/18 06:59 18:59 Intake Total 1575 Output Total 875 Balance 700 - Medications Medications: Current Medications Apixaban (Eliquis) 5 mg PO BID [facility]; Protocol Atorvastatin Calcium (Lipitor) 80 mg PO HS [facility] Last Admin: 02/12/18 22:09 Dose: 80 mg Dextrose (Dextrose 50% Inj) 0 ml IV STAT PRN; Protocol PRN Reason: Hypoglycemia Protocol Furosemide (Lasix) 40 mg PO DAILY [facility] Last Admin: 02/10/18 09:24 Dose: 40 mg Dextrose (Dextrose 5% In Water 1000 Ml) 1,000 mls @ 0 mls/hr IV .Q0M PRN; Protocol PRN Reason: Hypoglycemia Protocol Meropenem (Merrem Iv 1 Gm Premix) 1 gm in 50 mls @ 100 mls/hr IVPB Q12 DAVID; Protocol Stop: 02/18/18 22:31 Last Admin: 02/13/18 10:01 Dose: 100 mls/hr Sodium Chloride (Sodium Chloride 0.9%) 1,000 mls @ 60 mls/hr IV .[id number] [facility] Last Admin: 02/12/18 18:12 Dose: 60 mls/hr Insulin Detemir (Levemir) 8 unit SC BRKDIN [facility] Last Admin: 02/13/18 09:59 Dose: 8 units Insulin Human Lispro (Humalog Med) 0 units SC ACHS [facility]; Protocol Last Admin: 02/13/18 13:02 Dose: Not Given Losartan Potassium (Cozaar) 25 mg PO DAILY [facility] Last Admin: 02/13/18 10:00 Dose: 25 mg Metoprolol Succinate (Toprol Xl) 50 mg PO BRK [facility] Last Admin: 02/13/18 10:01 Dose: 50 mg Tamsulosin HCl (Flomax) 0.4 mg PO DAILY [facility] Last Admin: 02/13/18 10:01 Dose: 0.4 mg Verapamil HCl (Calan Tab) 40 mg PO TID [facility] Last Admin: 02/13/18 13:46 Dose: 40 mg - Labs Labs: 02/13/18 06:00 02/13/18 06:00 PT 15.2 SECONDS (9.4-12.5) H 02/13/18 06:00 INR 1.31 02/13/18 06:00 APTT 28.1 Seconds (25.1-36.5) 02/09/18 11:35 Assessment and Plan - Assessment and Plan (Free Text) Plan: Infectious diseases Attending Physician Attestation Patient seen and examined, discussed with medical lab assistant. I have reviewed the patient's history of present illness, past medical, social, personal and family histories, pertinent physical exam findings, course so far in this hospital admission, pertinent laboratory and imaging results. I agree with the above findings, assessment and plan. In addition, can switch to short course of Augmentin (3-5 days) for patient with right neck abscess probably necrotic lymph node in this patient with lung cancer and squamous cell neck cancer. Cultures have been negative.
--- NOTE | 2018-02-13 12:59 | CP.PCM.CON ---
History of Present Illness - History of Present Illness History of Present Illness: Palliative consult requested by Dr Jasmeet Villarreal Reason: Goals of care 72 year old male with history of left neck squamous cell carcinoma who presented with swelling and discomfort of mass on right jaw. The patient is currently receiving RT therapy to left neck for past 4 weeks. He denied having trouble swallowing, talking, bleeding or difficulty breathing. On 02/09 an I& D was done of right neck mass. Wound cultures were negative > Bartonella and other serology pending. Blood cultures negative. Chest x ray 02/10 showed no active disease. Luis Eduardo facial CT 02/09: 6.5 cm mass of left side of neck which surrounds and obliterates the left sternocleidomastoid muscle and left jugular vein.On the right there is a 3 X 3.8 cm fluid collection containing pockets of air, calcifications are also seen within the fluid matrix. This probably represents an abscess or necrotic lymph node. Echo 02/10: LV hypertrophy, EF 30-35%,trace aortic regurgitation, mild to moderate mitral and tricuspid regurgitation, mil/mod pulmonary hypertension, IVC dilated PMHx: left neck squamous cell carcinoma , CHF, A fib, HTN, DM2,PA. PSHx: AICD , lung biopsy. Social History: Former smoker, denies alcohol or drug abuse.Lives with girlfriend. Family History: Father PA, mother asthma. Advance Care Planning: The patient does not have an Advanced Directive Review of Systems: 12 point review of systems negative Past Patient History - Infectious Disease Hx of Infectious Diseases: None - Past Medical History & Family History Past Medical History?: Yes - Past Social History Smoking Status: Former Smoker Chewing Tobacco Use: No Cigar Use: No Alcohol: None Drugs: Denies Home Situation {Lives}: Roommate (girlfriend) - CARDIAC Hx Cardia Arrhythmia: Yes Hx Congestive Heart Failure: Yes Hx Peripheral Edema: Yes Other/Comment: defib - PULMONARY Hx Respiratory Disorders: No - NEUROLOGICAL Hx Paralysis: No - HEENT Hx HEENT Problems: Yes Hx Cataracts: Yes - RENAL Hx Chronic Kidney Disease: Yes - ENDOCRINE/METABOLIC Hx Endocrine Disorders: Yes Hx Diabetes Mellitus Type 2: Yes - HEMATOLOGICAL/ONCOLOGICAL Hx Blood Transfusions: No Hx Blood Transfusion Reaction: No Hx Cancer: Yes Other/Comment: on radiation therapy - INTEGUMENTARY Hx Dermatological Problems: No - MUSCULOSKELETAL/RHEUMATOLOGICAL Hx Musculoskeletal Disorders: Yes - GASTROINTESTINAL Hx Gastrointestinal Disorders: No - GENITOURINARY/GYNECOLOGICAL Hx Genitourinary Disorders: No - PSYCHIATRIC Hx Emotional Abuse: No Hx Physical Abuse: No Hx Substance Use: No - SURGICAL HISTORY Hx Cataract Extraction: Yes - ANESTHESIA Hx Anesthesia Reactions: No Hx Malignant Hyperthermia: No Meds Home Medications: Home Medication List Medication Instructions Recorded Confirmed Type Amoxicillin/Clavulanate [Augmentin 1 tab PO BID #10 tab 02/13/18 Rx 875 MG-125 MG] Apixaban [Eliquis] 5 mg PO BID #60 tab 02/13/18 Rx Verapamil [Calan Tab] 40 mg PO TID #90 tab 02/13/18 Rx Allergies/Adverse Reactions: Allergies Allergy/AdvReac Type Severity Reaction Status Date / Time No Known Allergies Allergy Verified 12/19/17 16:05 - Medications Medications: Current Medications Atorvastatin Calcium (Lipitor) 80 mg PO HS [facility] Last Admin: 02/12/18 22:09 Dose: 80 mg Dextrose (Dextrose 50% Inj) 0 ml IV STAT PRN; Protocol PRN Reason: Hypoglycemia Protocol Furosemide (Lasix) 40 mg PO DAILY [facility] Last Admin: 02/10/18 09:24 Dose: 40 mg Dextrose (Dextrose 5% In Water 1000 Ml) 1,000 mls @ 0 mls/hr IV .Q0M PRN; Protocol PRN Reason: Hypoglycemia Protocol Meropenem (Merrem Iv 1 Gm Premix) 1 gm in 50 mls @ 100 mls/hr IVPB Q12 DAVID; Protocol Stop: 02/18/18 22:31 Last Admin: 02/13/18 10:01 Dose: 100 mls/hr Sodium Chloride (Sodium Chloride 0.9%) 1,000 mls @ 60 mls/hr IV .[id number] [facility] Last Admin: 02/12/18 18:12 Dose: 60 mls/hr Insulin Detemir (Levemir) 8 unit SC BRKDIN [facility] Last Admin: 02/13/18 09:59 Dose: 8 units Insulin Human Lispro (Humalog Med) 0 units SC ACHS [facility]; Protocol Last Admin: 02/13/18 09:53 Dose: Not Given Losartan Potassium (Cozaar) 25 mg PO DAILY [facility] Last Admin: 02/13/18 10:00 Dose: 25 mg Metoprolol Succinate (Toprol Xl) 50 mg PO BRK [facility] Last Admin: 02/13/18 10:01 Dose: 50 mg Tamsulosin HCl (Flomax) 0.4 mg PO DAILY [facility] Last Admin: 02/13/18 10:01 Dose: 0.4 mg Verapamil HCl (Calan Tab) 40 mg PO TID [facility] Last Admin: 02/13/18 10:00 Dose: 40 mg Warfarin Sodium (Coumadin) 10 mg PO 1800 [facility]; Protocol Last Admin: 02/12/18 17:30 Dose: 10 mg Results - Vital Signs Recent Vital Signs: Last Vital Signs Temp 98.3 F 02/13/18 08:12 Pulse 97 H 02/13/18 10:01 Resp 19 02/13/18 08:12 BP 138/97 H 02/13/18 10:01 Pulse Ox 100 02/13/18 08:12 - Labs Result Diagrams: 02/13/18 06:00 02/13/18 06:00 Labs: Laboratory Results - last 24 hr 02/11/18 02/12/18 02/12/18 06:00 16:07 20:58 WBC RBC Hgb Hct MCV MCH MCHC RDW Plt Count Gran % Lymph % (Auto) [place] % (Auto) Eos % (Auto) Baso % (Auto) Gran # Lymph # (Auto) [place] # (Auto) Eos # (Auto) Baso # (Auto) PT INR Sodium Potassium Chloride Carbon Dioxide Anion Gap BUN Creatinine Est GFR ( Amer) Est GFR (Non-Af Amer) POC Glucose (mg/dL) 113 H 134 H Random Glucose Hemoglobin A1c 8.3 H Calcium Total Bilirubin AST ALT Alkaline Phosphatase Total Protein Albumin Globulin Albumin/Globulin Ratio 02/13/18 02/13/18 02/13/18 06:00 06:00 06:00 WBC 4.1 L RBC 4.79 Hgb 9.1 L Hct 29.3 L MCV 61.2 L MCH 19.0 L MCHC 31.1 RDW 19.8 H Plt Count 221 Gran % 55.3 Lymph % (Auto) 19.1 L [place] % (Auto) 15.2 H Eos % (Auto) 9.2 H Baso % (Auto) 1.2 Gran # 2.29 Lymph # (Auto) 0.8 L [place] # (Auto) 0.6 Eos # (Auto) 0.4 Baso # (Auto) 0.05 PT 15.2 H INR 1.31 Sodium 140 Potassium 4.0 Chloride 101 Carbon Dioxide 32 Anion Gap 11 BUN 24 H Creatinine 1.3 Est GFR ( Amer) > 60 Est GFR (Non-Af Amer) 54 POC Glucose (mg/dL) Random Glucose 76 Hemoglobin A1c Calcium 8.7 Total Bilirubin 0.8 AST 31 ALT 22 Alkaline Phosphatase 119 Total Protein 8.0 Albumin 3.7 Globulin 4.3 Albumin/Globulin Ratio 0.8 L 02/13/18 02/13/18 02/13/18 07:08 09:41 11:13 WBC RBC Hgb Hct MCV MCH MCHC RDW Plt Count Gran % Lymph % (Auto) [place] % (Auto) Eos % (Auto) Baso % (Auto) Gran # Lymph # (Auto) [place] # (Auto) Eos # (Auto) Baso # (Auto) PT INR Sodium Potassium Chloride Carbon Dioxide Anion Gap BUN Creatinine Est GFR ( Amer) Est GFR (Non-Af Amer) POC Glucose (mg/dL) 59 L 119 H 143 H Random Glucose Hemoglobin A1c Calcium Total Bilirubin AST ALT Alkaline Phosphatase Total Protein Albumin Globulin Albumin/Globulin Ratio Assessment & Plan - Assessment and Plan (Free Text) Assessment: 72 year old male with history of HTN, CAD, DM,squamous cancer of left neck currently receiving XTR therapy who was admitted with right neck mass. An I & D of right neck mass was done, cultures of wound were negative The patient is alert, oriented,offers no complaints. He is aware of all medical comorbidities and understands reason for this admission. Mr. Ken states hat he has been receiving XRT therapy for the past 4 weeks and intends to continue treatment. He denies having any serious side effects from treatment and states that his quality of life is good. He states that his apetite is good and that he has no trouble eating. He is able to perform ADL's wit out assistance. Advance care planning discussion ensued. The patient does not have and advanced directive. Importance of advance care planning explained. Benefits and burdens of CPR/intubation explained. The patient stats that he doesn't think he wants aggressive resuscitation but has not given it much tho ught. Encouraged to consider designating a health care proxy. Mr Ken states he will designate his son, Lance Lilly. He intends to discuss resuscitation wishes with his son before completing an Advanced Directive. Time spent in goals of care and advance care planning discussion with patient, 30 minutes Plan: Goals of care and advance care planning. Abscess right neck: S/p I & D. ID following, on Merrem can change to oral abx . A Fib/CHF/HTN:Cardiology following,continue Coumadin, Verapamil, Toprol, Losartin, Amlopdipine. Lipitor NSCL lung cancer/ squamous cell neck: XRT under Dr Hoa Grijalva. Follow up with Dr Rebecca Lucio as OP. DM: Fingersticks ACHS/ lispro as ordered. Continue Levemir.
[2018-02-13] MEDS ORDERED: Insulin Lispro 1 UNITS/0.01 ML SC ONE ×2 (14:00)
[2018-02-13 16:55] VITALS: TEMP 97.8
[2018-02-13 17:12] VITALS: BP 140/90; PULSE 80
--- NOTE | 2018-02-13 19:06 | CP.PCM.DIS ---
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 Infectious Disease Consult Routine Comment: Consulting Provider: Jai Mcgee Consulting Physician: Jai Mcgee Reason for Consult: possible rt neck abscess 02/09/18 14:48 Hematology Oncology Consult Routine Comment: Consulting Provider: Marnie Grijalva Consulting Physician: Marnie Grijalva Reason for Consult: left neck squamous ca; pt known to you 02/09/18 22:29 Nursing Referral for Palliative Care Routine Comment: jenny score Physician Instructions: Reason For Exam: eval Social Work Referral Routine Comment: d/c plan Physician Instructions: Reason For Exam: eval 02/09/18 22:51 Inpatient [employer]INE ENGINE[employer]ING [employer]PER[employer] Core Measures Referral Routine Comment: left neck mass/abcess right neck/hyperglycemia Physician Instructions: Reason For Exam: eval Transition In Care/Readmission Reduction Routine Comment: left neck mass/ r neck abcess/ hyperglycemis Physician Instructions: Reason For Exam: eval 02/09/18 22:54 Diabetic Education Referral Routine Comment: hyperglycemia Physician Instructions: Reason For Exam: eval 02/10/18 10:35 Consult [Physician Consult] Routine Comment: Consulting Provider: Kaycee Moseley Consulting Physician: Kaycee Moseley Reason for Consult: a.fib rvr 02/10/18 13:39 Palliative Care Consult Routine Comment: Consulting Provider: Amalia Gifford Physician Instructions: Reason For Exam: Head and neck cancer 02/12/18 01:36 Nursing Referral for Wound Care Routine Comment: Physician Instructions: Reason For Exam: R neck cheek mass 02/13/18 12:32 Nursing Referral for Wound Care Routine Comment: Physician Instructions: Reason For Exam: left neck mass Time Spent in preparation of Discharge (in minutes): 35 Diagnosis - Discharge Diagnosis (1) Abscess Status: Acute Priority: High (2) Head and neck cancer Status: Acute Priority: High (3) Neck mass Status: Acute (4) NORRIS (acute kidney injury) Status: Acute Priority: High (5) Diabetes Status: Chronic Priority: High Hospital Course - Lab Results Lab Results: Micro Results 02/09/18 14:00 Blood Blood Culture - Preliminary NO GROWTH AFTER 4 DAYS 02/09/18 13:45 Blood Blood Culture - Preliminary NO GROWTH AFTER 4 DAYS 02/09/18 17:54 Aspirate - Neck-Right Gram Stain - Final 02/09/18 17:54 Aspirate - Neck-Right Wound Culture - Final No growth. 02/09/18 17:54 Aspirate - Neck-Right Gram Stain - Final 02/09/18 17:54 Aspirate - Neck-Right Wound Culture - Final No growth. Most Recent Lab Values WBC 4.1 10^3/uL (4.5-11.0) L 02/13/18 06:00 RBC 4.79 10^6/uL (3.5-6.1) 02/13/18 06:00 Hgb 9.1 g/dL (14.0-18.0) L 02/13/18 06:00 Hct 29.3 % (42.0-52.0) L 02/13/18 06:00 MCV 61.2 fl (80.0-105.0) L 02/13/18 06:00 MCH 19.0 pg (25.0-35.0) L 02/13/18 06:00 MCHC 31.1 g/dl (31.0-37.0) 02/13/18 06:00 RDW 19.8 % (11.5-14.5) H 02/13/18 06:00 Plt Count 221 10^3/uL (120.0-450.0) 02/13/18 06:00 Gran % 55.3 % (50.0-68.0) 02/13/18 06:00 Lymph % (Auto) 19.1 % (22.0-35.0) L 02/13/18 06:00 [place] % (Auto) 15.2 % (1.0-6.0) H 02/13/18 06:00 Eos % (Auto) 9.2 % (1.5-5.0) H 02/13/18 06:00 Baso % (Auto) 1.2 % (0.0-3.0) 02/13/18 06:00 Gran # 2.29 (1.4-6.5) 02/13/18 06:00 Lymph # (Auto) 0.8 (1.2-3.4) L 02/13/18 06:00 [place] # (Auto) 0.6 (0.1-0.6) 02/13/18 06:00 Eos # (Auto) 0.4 (0.0-0.7) 02/13/18 06:00 Baso # (Auto) 0.05 K/mm3 (0.0-2.0) 02/13/18 06:00 Retic Count 0.46 % (0.5-1.5) L 02/10/18 05:44 PT 15.2 SECONDS (9.4-12.5) H 02/13/18 06:00 INR 1.31 02/13/18 06:00 APTT 28.1 Seconds (25.1-36.5) 02/09/18 11:35 Sodium 140 mmol/L (132-148) 02/13/18 06:00 Potassium 4.0 mmol/L (3.6-5.0) 02/13/18 06:00 Chloride 101 mmol/L (98-107) 02/13/18 06:00 Carbon Dioxide 32 mmol/L (21-33) 02/13/18 06:00 Anion Gap 11 (10-20) 02/13/18 06:00 BUN 24 mg/dL (7-21) H 02/13/18 06:00 Creatinine 1.3 mg/dl (0.8-1.5) 02/13/18 06:00 Est GFR ( Amer) > 60 02/13/18 06:00 Est GFR (Non-Af Amer) 54 02/13/18 06:00 POC Glucose (mg/dL) 58 mg/dL (65-110) L 02/13/18 16:02 Random Glucose 76 mg/dL (70-110) 02/13/18 06:00 Hemoglobin A1c 8.3 % (4.2-6.5) H 02/11/18 06:00 Calcium 8.7 mg/dL (8.4-10.5) 02/13/18 06:00 Ferritin 165.0 ng/mL 02/10/18 05:44 Total Bilirubin 0.8 mg/dL (0.2-1.3) 02/13/18 06:00 AST 31 U/L (17-59) 02/13/18 06:00 ALT 22 U/L (7-56) 02/13/18 06:00 Alkaline Phosphatase 119 U/L (38-126) 02/13/18 06:00 Total Protein 8.0 g/dL (5.8-8.3) 02/13/18 06:00 Albumin 3.7 g/dL (3.0-4.8) 02/13/18 06:00 Globulin 4.3 gm/dL 02/13/18 06:00 Albumin/Globulin Ratio 0.8 (1.1-1.8) L 02/13/18 06:00 Triglycerides 67 mg/dL (35-160) 02/11/18 06:00 Cholesterol 74 mg/dL (130-200) L 02/11/18 06:00 LDL Cholesterol Direct 40 mg/dL (0-129) 02/11/18 06:00 HDL Cholesterol 24 mg/dL (29-60) L 02/11/18 06:00 Vitamin B12 821 pg/mL (239-931) 02/11/18 06:00 Folate 4.5 ng/mL 02/10/18 05:44 TSH 3rd Generation 1.78 mIU/mL (0.46-4.68) 02/11/18 06:00 RPR Nonreactive (NONREACTIVE) 02/10/18 05:44 T.pallidum Ab (FTA-ABS) Nonreactive (Nonreactive) 02/10/18 05:44 B. henselae IgG Titer Negative 02/10/18 05:44 Bartonella henselae IgM Negative 02/10/18 05:44 B. hicks IgG Titer TEST NOT PERFORMED 02/10/18 05:44 Bartonella hicks IgG Negative 02/10/18 05:44 B. hicks IgM Titer TEST NOT PERFORMED 02/10/18 05:44 Bartonella hicks IgM Negative 02/10/18 05:44 HIV 1&2 Ag/Ab, 4th Gen Nonreactive (Nonreactive) 02/10/18 05:44 - Hospital Course Hospital Course: Upon Arrival Pt is a 72yo male with a PMH of CHF atrial fibrillation, diabetes type II, HTN, left neck mass Squamous cell carcinoma, non small cell lung cancer of the lung who presents to the ED after being refereed by his radiation oncologist, Dr Grijalva for a rapidly enlarging mass on the right side of his cheek below his ear lobe. Pt states that he has had a bump in this location for "years". Pt was told at one time that this is "some type of gland". During Hospitalization During the hospital stay Surgery was consulted, Dr Delcid performed an abscess I+D from which cultures were obtained with no growth of any organism. Radiation oncology, heme/onc, cardio, and ID were all consulted. Pt chronic conditions were managed while he admited such as CHF, atrial fibrillation, DM, HLD, HTN, BPH. Discharge At discharge pt was advised to follow up with his primary medical doctor Dr Fajardo in the next 3-5 days. Pt advised to please follow up with your Microfiche Duplicator, Dr. Viveros, or the showcase maker he saw in the hospital, Dr. Moseley, within 1 week of discharge. Advised to please follow up with Dr. Delcid within 1 week of discharge due to possible re-occurrence of the sebaceous cyst. Will make plan for outpatient excision in the future. Wound care was explained to the pt. Pt advised to please follow up with radiation oncologist, Dr. Grijalva, within 1 week of discharge to follow up plans for radiation. Pt is to stop taking coumadin, and stop taking amlodipine. Pt was started on eliquis, verapamil, and augmentin. Pt medications were sent to [facility]'s pharmacy. Pt advised to continue all home medications: Lipitor, Levemir, Metoprolol, Valsartan, Lasix, Flomax, Tylenol. - Date & Time of H&P Date of H&P: 02/13/18 Time of H&P: 08:00 Discharge Exam - Eye Exam Eye Exam: EOMI - ENT Exam ENT Exam: Mucous Membranes Moist - Respiratory Exam Respiratory Exam: NORMAL BREATHING PATTERN. absent: Accessory Muscle Use, Respiratory Distress - Cardiovascular Exam Cardiovascular Exam: Irregular Rhythm, +S1, +S2. absent: Diastolic murmur, Systolic Murmur - GI/Abdominal Exam GI & Abdominal Exam: Normal Bowel Sounds, Soft - Extremities Exam Extremities exam: full ROM, pedal pulses present - Neurological Exam Neurological exam: Alert, Oriented x3 - Psychiatric Exam Psychiatric exam: Normal Affect, Normal Mood - Skin Skin Exam: Dry, Intact, Warm Discharge Plan - Discharge Medications Prescriptions: Amoxicillin/Clavulanate [Augmentin 875 MG-125 MG] 1 tab PO BID #10 tab Apixaban [Eliquis] 5 mg PO BID #60 tab Verapamil [Calan Tab] 40 mg PO TID #90 tab - Follow Up Plan Condition: FAIR Disposition: HOME/ ROUTINE Instructions: Anemia Caused by Low Iron, Child (DC), Wound Care (DC), Abscess Incision and Drainage (DC) Additional Instructions: Please follow up with primary medical doctor, Dr. Fajardo, within 3-5 days of discharge. Please follow up with your Microfiche Duplicator, Dr. Viveros, or the showcase maker you saw in the hospital, Dr. Moseley, within 1 week of discharge. Please follow up with Dr. Delcid within 1 week of discharge due to possible re- occurrence of the sebaceous cyst. Will make plan for outpatient excision in the future. Cover your wound with gauze and tape. You are able to shower. Do not scrub area. Please follow up with your radiation oncologist, Dr. Grijalva, within 1 week of discharge to follow up plans for radiation. Here are the changes to your medications: 1. STOP TAKE COUMADIN (we have switched you to a new blood thinner than does not need to be monitored with INR) 2. STOP TAKING AMLODIPINE (Blood pressure pill) NEW MEDICATIONS: 1. ELIQUIS 5mg ONE PILL IN AM AND ONE PILL IN PM (THIS IS THE NEW BLOOD THINNER) 2. VERAPAMIL 40mg ONE PILL THREE TIMES PER DAY (THIS IS TO CONTROL YOUR HEART RATE) 3. AUGMENTIN 875/125mg ONE PILL TWICE PER DAY FOR 5 more days (THIS IS AN ANTIBIOTIC) These medications were sent to your pharmacy, [facility] [place], [place] You have been given one month supply of both Eliquis and Verapamil. It is up to Cardiology or Dr. Fajadro to give you refills Continue all other home medications: 1. Lipitor 80mg once daily (Cholesterol medicine) 2. Levemir (insulin) 10U TWICE PER DAY (Diabetes medicine) - this has decreased because your sugar has been lower in the hospital 3. Metoprolol 50mg XL once daily (For blood pressure and heart rate) 4. Valsartan 80mg once daily (Blood pressure) 5. Lasix 40mg once daily (Water pill- for blood pressure and swelling) 6. Flomax 0.4 mg once daily (to help with urination) 7. Tylenol 325mg as needed for pain If your symptoms return, please go to the nearest emergency department. Referrals: Kaycee Moseley MD [Staff Provider] - Marnie Grijalva MD [Staff Provider] - Guerrero Fajardo MD [Primary Care Provider] - Rodolfo Delcid MD [Staff Provider] -
--- NOTE | 2018-02-13 19:20 | PN ---
DATE: 02/13/2018 REASON FOR CONSULTATION: Cardiomyopathy; nonischemic status post AICD; history of chronic atrial fibrillation with rapid ventricular heart rate, well controlled; right neck mass, status post I and D. The patient denies any chest pain, shortness of breath, or any palpitation. OBJECTIVE: GENERAL: Not in apparent distress. VITAL SIGNS: Examination as follows; temperature afebrile, heart rate 80, and blood pressure 135/75. HEENT: PERRLA. Extraocular muscles intact. NECK: Supple. No carotid bruit or thyromegaly. CHEST: Clear to auscultation. HEART: S1 and S2 regular. ABDOMEN: Soft. EXTREMITIES: Clubbing and cyanosis negative. LABORATORY DATA: Blood workup as follows; WBC 4.9, hemoglobin 9 , hematocrit 29.3, and platelet count 221. Coagulation profile; INR 1.3. The patient is on 10 mg of Coumadin. Chemistry shows sodium 140, potassium 4, chloride 101, carbon dioxide 32, anion gap of 11, BUN 24, creatinine 1.3. TSH 1.78. The patient had an echocardiography done day before yesterday that revealed ejection fraction 30% to 35%, trace aortic regurgitation, [id number] mitral regurgitation, [id number] tricuspid regurgitation, RV systolic pressure 50 consistent with prni-if-ibsiylli pulmonary hypertension, right ventricle dilated, right atrium mildly dilated, and left atrium mildly dilated. IMPRESSION: A 72-year-old male with past medical history of nonobstructive coronary artery disease, status post cardiac catheterization three years ago by Dr. Benítez at [facility], being followed by Dr. Benítez, sap gatherer and Dr. Raya at [facility]. History of nonobstructive coronary artery disease, history of lung cancer, status post head and neck cancer, status post percutaneous endoscopic gastrostomy placement, recently incision and drainage was done and initial cultures are negative. Some of the cultures are pending. Had atrial fibrillation with rapid ventricular rate, now rate is well controlled. The patient has been on Coumadin, but still INR is 1.3, he is on 10 mg of Coumadin. RECOMMENDATIONS: Coumadin, we will discontinue Coumadin and start Eliquis 5 mg p.o. b.i.d. Continue verapamil 40 mg three times a day. Continue losartan. Continue metoprolol succinate at 50 mg in the morning. Discussed with the resident taking care of the patient, possible discharge home soon. We will discontinue PT/INR because the patient is changed to Eliquis and Coumadin is discontinued. Upon discharge, the patient will be followed up with Dr. Benítez, his sap gatherer and Dr. Raya. Discussed with the patient. We will follow with you. Thank you Dr. Villarreal for providing us the opportunity in taking care of the patient, Nehemias Aguilera. Kaycee Moseley MD
== END 2018-02-13 18:53 | disposition home or self-care (01) | DRG 603 ==
LOC: ED 10:30 → ERH 13:53 → 3RNO 15:52 → OBSVTOIN 02-10 12:24
PROVIDERS: ADMIT Hospitalist; ATTEND Hospitalist
PROC: 0J943ZX Drainage of Right Neck Subcutaneous Tissue and Fascia, Percutaneous Approach, Diagnostic (ICD-10-PCS; principal; 2018-02-09)
DX: L02.11 Cutaneous abscess of neck (principal); N17.9 Acute kidney failure, unspecified; I13.0 Hypertensive heart and chronic kidney disease with heart failure and stage 1 through stage 4 chronic kidney disease, or unspecified chronic kidney disease; I50.22 Chronic systolic (congestive) heart failure; C34.90 Malignant neoplasm of unspecified part of unspecified bronchus or lung; I42.9 Cardiomyopathy, unspecified; R65.10 Systemic inflammatory response syndrome (SIRS) of non-infectious origin without acute organ dysfunction; C76.0 Malignant neoplasm of head, face and neck; L72.3 Sebaceous cyst; N18.9 Chronic kidney disease, unspecified; E86.0 Dehydration; E11.22 Type 2 diabetes mellitus with diabetic chronic kidney disease; I25.10 Atherosclerotic heart disease of native coronary artery without angina pectoris; I48.2 Chronic atrial fibrillation; E78.5 Hyperlipidemia, unspecified; N40.0 Benign prostatic hyperplasia without lower urinary tract symptoms; D63.8 Anemia in other chronic diseases classified elsewhere; R13.10 Dysphagia, unspecified; E87.6 Hypokalemia; I27.20 Pulmonary hypertension, unspecified; I08.3 Combined rheumatic disorders of mitral, aortic and tricuspid valves; Z79.01 Long term (current) use of anticoagulants; Z87.891 Personal history of nicotine dependence; Z79.4 Long term (current) use of insulin; Z95.810 Presence of automatic (implantable) cardiac defibrillator

== ENCOUNTER 2018-03-07 11:33 | Outpatient (CLI) | payer MEDICARE | END 2018-03-07 11:34 | disposition home or self-care (01) | LOC: LAB 11:33 ==

== ENCOUNTER 2018-03-23 10:53 | Outpatient (CLI) | payer MEDICARE | END 2018-03-23 10:54 | disposition home or self-care (01) | LOC: LAB 10:53 | DX: C77.0 Secondary and unspecified malignant neoplasm of lymph nodes of head, face and neck (principal) ==

== ENCOUNTER 2018-03-24 11:09 | Emergency (ER) | payer MEDICARE ==
[2018-03-24 11:26] VITALS: BMI 26.4
--- NOTE | 2018-03-24 12:04 | ED PDOC ---
Arrival/HPI - General Chief Complaint: Medical Clearance Time Seen by Provider: 03/24/18 11:13 Historian: Patient - History of Present Illness Narrative History of Present Illness (Text): 03/24/18 12:00 A 72 year old male, whose past medical history includes presents to the emergency department with a complaint of several week duration auricular abscess. The patient reports that he was sent in by Dr. Grijalva for further evaluation of the abscess. The patient notes that it feels sore. Dr. Grijalva reports that the patient has been on antibiotics with no improvement of the swelling. The patient denies fevers, chills, headache, dizziness, chest pain, shortness of breath, dyspnea on exertion, cough, abdominal pain, nausea, vomiting, diarrhea, back pain, neck pain, urinary/bowel changes, or any other complaint. Oncologist: Dr. Grijalva Specialist: Dr. Delcid(general surgery) Time/Duration: Other (Several weeks) Symptom Onset: Sudden Symptom Course: Unchanged Activities at Onset: Rest, Light Context: Home Past Medical History - Provider Review Nursing Documentation Reviewed: Yes - Infectious Disease Hx of Infectious Diseases: None - Cardiac Hx Cardiac Disorders: Yes (mi 5 yrs ago) Hx Internal Defibrill[place]: Yes [place] Other/Comment: defib - Pulmonary Hx Respiratory Disorders: No - Neurological Hx Neurological Disorder: Yes (syncope) - HEENT Other/Comment: left neck mass, right neck below right ear abcess i&d today draining bloody drainage no c/o pain - Renal Hx Renal Disorder: Yes - Endocrine/Metabolic Hx Endocrine Disorders: Yes Hx Diabetes Mellitus Type 2: Yes - Hematological/Oncological Hx Blood Disorders: Yes Hx Anemia: Yes Hx Cancer: Yes Hx Chemotherapy: Yes Other/Comment: on radiation therapy - Integumentary Hx Squamous Cell Carcinoma: Yes (head/neck) Other/Comment: dry thick toenails and dry ski both feet, dry skin ble, left neck mass, r neck abcess i&d today dressing intact some bloody dng noted no c/o pain, lipoma - Musculoskeletal/Rheumatological Hx Falls: No Hx Unsteady Gait: Yes (cane) - Gastrointestinal Hx Gastrointestinal Disorders: No - Genitourinary/Gynecological Hx Genitourinary Disorders: No - Psychiatric Hx Emotional Abuse: No Hx Physical Abuse: No Hx Substance Use: No - Surgical History Other/Comment: ct scan guided lung bx, neck bx 10/2017, I&D right neck abcess - Anesthesia Hx Anesthesia: Yes Hx Anesthesia Reactions: No Hx Malignant Hyperthermia: No - Suicidal Assessment Feels Threatened In Home Enviroment: No Family/Social History - Physician Review Nursing Documentation Reviewed: Yes Family/Social History: No Known Family HX Smoking Status: Former Smoker Hx Alcohol Use: No Hx Substance Use: No Allergies/Home Meds Allergies/Adverse Reactions: Allergies No Known Allergies Allergy (Verified 12/19/17 16:05) Home Medications: Home Meds Medication Instructions Recorded Confirmed Insulin Detemir [Levemir] 20 unit SC QAM 10/21/17 02/09/18 Tamsulosin HCl [Flomax] 0.4 mg PO DAILY 10/21/17 02/09/18 Atorvastatin [Lipitor] 80 mg PO DAILY 12/19/17 02/09/18 Insulin Detemir [Levemir] 15 unit SQ QPM 12/19/17 02/09/18 Valsartan [Diovan] 80 mg PO DAILY 12/19/17 02/09/18 Ferrous Sulfate [Feosol] 325 mg PO DAILY 01/03/18 02/09/18 Metoprolol Succinate XL [Toprol XL] 50 mg PO DAILY 02/10/18 02/10/18 Review of Systems - Physician Review All systems were reviewed & negative as marked: Yes - Review of Systems Constitutional: absent: Fevers ENT: Other (auricular abscess) Respiratory: absent: SOB, Cough Cardiovascular: absent: Chest Pain, BAHENA Gastrointestinal: absent: Abdominal Pain, Stool Changes, Diarrhea, Nausea, Vomiting Genitourinary Male: absent: Urinary Output Changes Musculoskeletal: absent: Back Pain, Neck Pain Neurological: absent: Headache, Dizziness Physical Exam Vital Signs Reviewed: Yes Vital Signs Temp Pulse Resp BP Pulse Ox 03/24/18 11:43 97.6 F 109 H 20 116/79 98 Temperature: Afebrile Blood Pressure: Normal Pulse: Tachycardic Respiratory Rate: Normal Appearance: Positive for: Well-Appearing, Non-Toxic, Comfortable Pain Distress: None Mental Status: Positive for: Alert and Oriented X 3 Medical Decision Making ED Course and Treatment: 03/24/18 12:05 Impression: A 72 year old male is brought into the emergency department for further evaluation of auricular abscess. Plan: --Labs --CT soft tissue neck w/o contrast --Surgery evaluation --Reassess and disposition Prior Visits: Notes and results from previous visits were reviewed. Progress Notes: 03/24/18 15:32 Labs reviewed with no evidence of acute infection. CT soft tissue neck pending results. Spoke to neurosurgical nurse practitioner who states the residents who will be performing the I&D are still in the OR with a case. They will review the CT scan and come up with a plan soon 03/24/18 17:00 Surgery at the bedside performing I & D. The resident states patient may follow up with Dr. Delcid(general surgery) in the outpatient office. He advises antibiotics to be given as a script. He demonstrates understanding and will follow up. He is stable for discharge. - Lab Interpretations Lab Results: 03/24/18 13:23 03/24/18 13:23 Lab Results 03/24/18 13:23: Sodium 140, Potassium 3.4 L, Chloride 98, Carbon Dioxide 33, Anion Gap 12, BUN 24 H, Creatinine 1.0, Est GFR ( Amer) > 60, Est GFR (Non-Af Amer) > 60, Random Glucose 130 H, Calcium 8.8, Total Bilirubin 1.0, AST 22, ALT 7, Alkaline Phosphatase 97, Total Protein 8.6 H, Albumin 4.3, Globulin 4.4, Albumin/Globulin Ratio 1.0 L 03/24/18 13:23: WBC 3.6 L, RBC 5.00, Hgb 10.4 L, Hct 33.1 L, MCV 66.2 L, MCH 20.8 L, MCHC 31.4, RDW 23.4 H, Plt Count 205, Neut % (Auto) 46.4 L, Lymph % (Auto) 18.0 L, [place] % (Auto) 25.1 H, Eos % (Auto) 8.5 H, Baso % (Auto) 2.0, Lymph # (Auto) 0.6 L, [place] # (Auto) 0.9 H, Eos # (Auto) 0.3, Baso # (Auto) 0.07, Absolute Neuts (auto) 1.65, Neutrophils % (Manual) 56, Lymphocytes % (Manual) 19 L, Monocytes % (Manual) 14 H, Eosinophils % (Manual) 10 H, Basophils % (Manual) 1, Platelet Evaluation Normal, Hypochromasia 2+, Anisocytosis (manual) 1+, Microcytosis (manual) 1+, ESR 57 H I have reviewed the lab results: Yes - Scribe Statement The provider has reviewed the documentation as recorded by the Scribe Nila Harrell Provider Scribe Attestation: All medical record entries made by the Scribe were at my direction and personally dictated by me. I have reviewed the chart and agree that the record accurately reflects my personal performance of the history, physical exam, medical decision making, and the department course for this patient. I have also personally directed, reviewed, and agree with the discharge instructions and disposition. Disposition/Present on Arrival - Present on Arrival Any Indicators Present on Arrival: Yes History of DVT/PE: No History of Uncontrolled Diabetes: Yes Urinary Catheter: No History of Decub. Ulcer: No History Surgical Site Infection Following: None - Disposition Have Diagnosis and Disposition been Completed?: Yes Diagnosis: Abscess, earlobe Disposition: HOME/ ROUTINE Disposition Time: 17:05 Patient Plan: Discharge Patient Problems: Current Active Problems Problem Status Onset Abscess, earlobe Acute Condition: IMPROVED Discharge Instructions (ExitCare): Skin Abscess, Outer Ear Infection (DC) Print Language: LAO Additional Instructions: All medical record entries made by the Scribe were at my direction and personally dictated by me. I have reviewed the chart and agree that the record accurately reflects my personal performance of the history, physical exam, medical decision making, and the department course for this patient. I have also personally directed, reviewed, and agree with the discharge instructions and disposition. Please follow up with the surgeon in 1 week Prescriptions: Clindamycin [Cleocin] 300 mg PO BID 10 Days #20 cap Referrals: Rodolfo Delcid MD [Staff Provider] - Follow up with primary Marnie Grijalva MD [Staff Provider] - Follow up with primary Forms: D1G (Serbian)
[2018-03-24 13:41] LABS: BASO # 0.07 K/mm3 (0.0-2.0); EOS # 0.3 (0.0-0.7); EOS % 8.5 % (1.5-5.0); HEMOGLOBIN 10.4 g/dL (14.0-18.0); LYMPH # 0.6 (1.2-3.4); MEAN CELL VOLUME 66.2 fl (80.0-105.0); MEAN CORPUSCULAR HEMOGLOBIN 20.8 pg (25.0-35.0); MEAN CORPUSCULAR HGB CONC 31.4 g/dl (31.0-37.0); MONO # 0.9 (0.1-0.6); MONO % 25.1 % (1.0-6.0); PLATELET COUNT 205 10^3/uL (120.0-450.0); RED CELL DISTRIBUTION WIDTH 23.4 % (11.5-14.5); WHITE BLOOD COUNT 3.6 10^3/uL (4.5-11.0)
[2018-03-24 13:52] LABS: ALBUMIN 4.3 g/dL (3.0-4.8); ALT/SGPT 7 U/L (7-56); AST/SGOT 22 U/L (17-59); BLOOD UREA NITROGEN 24 mg/dL (7-21); CALCIUM 8.8 mg/dL (8.4-10.5); GFR NON-AFRICAN AMERICAN > 60
[2018-03-24 14:06] LABS: BASOPHIL 1 % (0.0-1.0); EOSINOPHIL 10 % (0.0-3.0); LYMPHOCYTE 19 % (22.0-35.0); MONOCYTE 14 % (1.0-6.0); NEUTROPHIL 56 % (50.0-70.0)
[2018-03-24 14:08] LABS: ANISOCYTOSIS 1+; HYPOCHROMIA 2+; MICROCYTOSIS 1+; PLATELET ESTIMATE NORMAL (NORMAL)
--- NOTE | 2018-03-24 14:17 | CP.PCM.CON ---
History of Present Illness - History of Present Illness History of Present Illness: Surgery consult for Dr. Delcid Patient is a 72M with a PMH of CHF atrial fibrillation, diabetes type II, HTN, left neck mass Squamous cell carcinoma, non small cell lung cancer of the lung. Surgery was consulted for a left auricular mass in the intertragic notch. Patient is a poor historian, so information was sourced from chart review. Patient was referred to the ED by his oncologist Dr. Grijalva. Patient denies fever/chills, shortness of breath, chest pain, abdominal pain, n/v/d/c, dysuria. PMH: CHF atrial fibrillation, diabetes type II, HTN, left neck mass Squamous cell carcinoma, non small cell lung cancer of the lung PSH: I+D of left groin abscess, biopsy of mass on left side of neck/face FH: mother asthma, father "heart attack SH: Tobacco 10 pack years history, denies alcohol, denies drugs ALL: denies Meds: Lipitor, Levemir, Metoprolol, Valsartan, Lasix, Flomax, Tylenol, Eliquis, Verapamil Review of Systems - Review of Systems Review of Systems: 12 point ROS as per HPI Past Patient History - Infectious Disease Hx of Infectious Diseases: None - Past Medical History & Family History Past Medical History?: Yes - Past Social History Smoking Status: Former Smoker - CARDIAC Hx Cardiac Disorders: Yes (mi 5 yrs ago) Hx [place] Def[place]: [place] [place] Other/Comment: defib - PULMONARY Hx Respiratory Disorders: No - NEUROLOGICAL Hx Neurological Disorder: Yes (syncope) - HEENT Other/Comment: left neck mass, right neck below right ear abcess i&d today draining bloody drainage no c/o pain - RENAL Hx Chronic Kidney Disease: Yes - ENDOCRINE/METABOLIC Hx Endocrine Disorders: Yes Hx Diabetes Mellitus Type 2: Yes - HEMATOLOGICAL/ONCOLOGICAL Hx Blood Disorders: Yes Hx Anemia: Yes Hx Cancer: Yes Hx Chemotherapy: Yes Other/Comment: on radiation therapy - INTEGUMENTARY Hx Squamous Cell: Yes (head/neck) Other/Comment: dry thick toenails and dry ski both feet, dry skin ble, left neck mass, r neck abcess i&d today dressing intact some bloody dng noted no c/o pain, lipoma - MUSCULOSKELETAL/RHEUMATOLOGICAL Hx Falls: No Hx Unsteady Gait: Yes (cane) - GASTROINTESTINAL Hx Gastrointestinal Disorders: No - GENITOURINARY/GYNECOLOGICAL Hx Genitourinary Disorders: No - PSYCHIATRIC Hx Emotional Abuse: No Hx Physical Abuse: No Hx Substance Use: No - SURGICAL HISTORY Other/Comment: ct scan guided lung bx, neck bx 10/2017, I&D right neck abcess - ANESTHESIA Hx Anesthesia: Yes Hx Anesthesia Reactions: No Hx Malignant Hyperthermia: No Meds Allergies/Adverse Reactions: Allergies Allergy/AdvReac Type Severity Reaction Status Date / Time No Known Allergies Allergy Verified 12/19/17 16:05 Physical Exam - Constitutional Appears: No Acute Distress - Head Exam Head Exam: ATRAUMATIC, NORMAL INSPECTION, NORMOCEPHALIC - Eye Exam Eye Exam: EOMI, Normal appearance, PERRL - ENT Exam Additional comments: Left auricular mass ~4cm diameter in the intertragic notch - Respiratory Exam Respiratory Exam: Clear to Auscultation Bilateral, NORMAL BREATHING PATTERN. a bsent: Rales, Rhonchi, Wheezes - Cardiovascular Exam Cardiovascular Exam: REGULAR RHYTHM, +S1, +S2 - GI/Abdominal Exam GI & Abdominal Exam: Normal Bowel Sounds, Soft. absent: Tenderness - Extremities Exam Extremities exam: Positive for: normal inspection - Neurological Exam Neurological exam: Alert, Oriented x3 - Psychiatric Exam Psychiatric exam: Normal Affect, Normal Mood - Skin Skin Exam: Dry, Intact, Normal Color Results - Vital Signs Recent Vital Signs: Last Vital Signs Temp 97.7 F 03/24/18 13:37 Pulse 93 H 03/24/18 13:37 Resp 20 03/24/18 13:37 BP 118/77 03/24/18 13:37 Pulse Ox 100 03/24/18 13:37 - Labs Result Diagrams: 03/24/18 13:23 03/24/18 13:23 Labs: Laboratory Results - last 24 hr 03/24/18 13:23 WBC 3.6 L RBC 5.00 Hgb 10.4 L Hct 33.1 L MCV 66.2 L MCH 20.8 L MCHC 31.4 RDW 23.4 H Plt Count 205 Neut % (Auto) 46.4 L Lymph % (Auto) 18.0 L [place] % (Auto) 25.1 H Eos % (Auto) 8.5 H Baso % (Auto) 2.0 Lymph # (Auto) 0.6 L [place] # (Auto) 0.9 H Eos # (Auto) 0.3 Baso # (Auto) 0.07 Absolute Neuts (auto) 1.65 Assessment & Plan - Assessment and Plan (Free Text) Assessment: This is a 72M with PMH of CHF atrial fibrillation, diabetes type II, HTN, left n comfort mass Squamous cell carcinoma, non small cell lung cancer of the lung who presented to the ED with a left auricular mass in the intertragic notch. Plan: -Recommend I&D of left ear fluid collection with emergency medical team -Follow up with Dr. Grijalva for further management of chronic conditions PGY-1 Paul Crump DO
[2018-03-24 14:51] LABS: ERYTHROCYTE SEDIMENTATION RATE 57 mm/hr (0.00-15.0)
--- NOTE | 2018-03-24 15:57 | CT ---
Date of service: 03/24/2018 PROCEDURE: CT NECK WITH CONTRAST HISTORY: neck abscess? COMPARISON: Comparison is made to the previous PET-CT dated TECHNIQUE: CT of the neck with intravenous contrast. Coronal and sagittal reformats generated. Intravenous contrast dose: 96 mL of Omnipaque 350 intravenously Radiation dose: Total exam DLP = 569.91 mGy-cm. This CT exam was performed using one or more of the following dose reduction techniques: Automated exposure control, adjustment of the mA and/or kV according to patient size, and/or use of iterative reconstruction technique. FINDINGS: NASOPHARYNX: There is diffuse soft tissue swelling and hyperemia noted. There is asymmetry soft tissue swelling noted at the inferior aspect of the nasopharynx with the left is larger than the right. SUPRAHYOID NECK: There is also diffuse soft tissue swelling noted in the oropharynx more prominent in the left side. There is enlargement of the lingular and palatine tonsils bilaterally left more than right INFRAHYOID NECK: There is mass like lesion at the left piriform sinus extending to the midline and also extending to the epiglottic region highly suspicious for malignant neoplasm. MASS: Again noted is mass lesion at the left mid neck measures approximately 5.6 centimeter in the transverse diameter and 5.4 centimeter in the AP diameter with central necrosis. The mass appears larger compared to the previous PET-CT. There are at least 4 subcutaneous low-density lesions noted adjacent to the ears and in the posterior aspect of the neck may represent abscess formation versus infected sebaceous cyst or less likely metastasis. GLANDS: The parotid glands are heterogeneous demonstrate heterogeneous high attenuation and enhancement. No discrete mass lesion seen in the parotid gland. The thyroid gland is normal in size and shape. LYMPH NODES: Mild lymphadenopathy noted in the right neck. There is also [id number] lymphadenopathy at the mid and lower left neck. CERVICAL SPINE: No fracture or focal lesion. VASCULAR STRUCTURES: Unremarkable. OTHER FINDINGS: Again noted is soft tissue nodule at the right lung apex measures 11 millimeter may represent metastasis. There are jhbwpn-ny-oxhsrnnnry enlarged bilateral eylgbg-dn-[id number] enlarged bilateral axillary lymph nodes noted. There are also ground-glass opacities and small nodules in the left upper lobe. IMPRESSION: Interval increase in the size of soft tissue mass lesion at the left mid to upper neck since the prior PET-CT exam with interval appearance of central necrosis. Findings suspicious for malignant neoplasm. Interval appearance of mass lesion at the level of the left piriform sinus likely local extension from the left neck mass versus local metastasis. Diffuse moderate to severe soft tissue swelling and hyperemia in the naso-oropharynx likely represent infectious or inflammatory process. At least 4 subcutaneous low-attenuation lesions in the neck may represent sebaceous cyst/infected sebaceous cyst versus less likely metastasis. Additional findings as discussed above.
--- NOTE | 2018-03-24 17:21 | PCM.SURG1 ---
Surgeon's Initial Post Op Note - Surgeon's Notes Surgeon: Dr. Delcid Photostatic Copy Maker: Cris JACKSON Type of Anesthesia: Local Anesthesia Administered By: Cris JACKSON Pre-Operative Diagnosis: Left neck Abscess Operative Findings: Left neck, inferior ear abscess approximately 3cm x 2cm area. Purulent material expressed and sent to lab for analysis. Post-Operative Diagnosis: Same Operation Performed: Incision and drainage of left neck abscess Specimen/Specimens Removed: wound culture Estimated Blood Loss: EBL {In ML}: 2 Blood Products Given: N/A Drains Used: No Drains Post-Op Condition: Good Date of Surgery/Procedure: 03/24/18 Time of Surgery/Procedure: 17:21
[2018-03-24 19:46] VITALS: BP 120/74; PULSE 90; RESP 17; TEMP 98; O2SAT 99
== END 2018-03-24 19:30 | disposition home or self-care (01) ==
LOC: ED 11:09
DX: H60.02 Abscess of left external ear (principal); E11.9 Type 2 diabetes mellitus without complications; I48.91 Unspecified atrial fibrillation; I50.9 Heart failure, unspecified; I10 Essential (primary) hypertension; Z85.118 Personal history of other malignant neoplasm of bronchus and lung; Z87.891 Personal history of nicotine dependence